=== PATIENT | female | born 1980 | race Caucasian/White ===

== ENCOUNTER 2016-04-28 15:29 | Inpatient (IN) | payer OTHER ==
[~2016-04-28] VITALS: Ht 160 cm; Wt 68.4 kg
[2016-04-28] MEDS ORDERED: MIDAZOLAM INJ 2 MG/2 ML VIAL (J2250) As Ordered ONE ×3 (15:53→16:20)
[2016-04-28] MEDS ORDERED: ISOVUE-370 76% 100ML VIAL (Q9967) As Ordered ONE (15:56)
[2016-04-28 16:08] LABS: ABG BASE EXCESS -0.1 (-2.0-2.0); ABG DEVICE NASAL CANN; ABG HCO3 22.1 MEQ/L (22.0-26.0); ABG PARTIAL PRESSURE CO2 29.5 mmHg (35.0-45.0); ABG PARTIAL PRESSURE O2 166.3 mmHg (75.0-100.0); ABG STANDARD HCO3 24.5 MEQ/L (22.0-26.0); ABG pH (ARTERIAL) 7.492 UNITS (7.350-7.450)
[2016-04-28 16:12] LABS: BASO % 0.3 % (0.0-1.0); EOS # 0.1 K/mm3 (0.0-0.50); LARGE UNSTAINED CELL # 0.2 K/mm3 (0.0-0.4); LYMPH # 2.5 K/mm3 (1.5-4.5); LYMPH % 25.1 % (24.0-44.0); MEAN CORPUSCULAR HEMOGLOBIN 29.7 pg (27.0-33.0); MEAN CORPUSCULAR HGB CONC 35.1 g/dl (32.0-36.5); MEAN CORPUSCULAR VOLUME 84.6 fl (80.0-96.0); MONO # 0.6 K/mm3 (0.0-0.8); MONO % 6.5 % (0.0-5.0); NEUTROPHILS % 65.1 % (36.0-66.0); PLATELET COUNT, AUTOMATED 241 k/mm3 (150-450); WHITE BLOOD COUNT 9.2 K/mm3 (4.0-10.0)
[2016-04-28 16:18] LABS: AMPHETAMINES LEVEL URINE POSITIVE (NEGATIVE); BENZODIAZEPINES URINE NEGATIVE (NEGATIVE); COCAINE METABOLITE URINE NEGATIVE (NEGATIVE); CONTROL LINE INT CTR LINE PRESENT; METHADONE URINE NEGATIVE (NEGATIVE); OPIATES URINE POSITIVE (NEGATIVE); TRICYCLIC ANTIDEPRESS URINE NEGATIVE (NEGATIVE)
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
--- NOTE | 2016-04-28 17:06 | ECGEPIP ---
Stationary ECG Study [facility] - ED Test Date: 2016-04-28 Pat Name: JAVIER OSBORNE Department: Room: - Gender: F [employer]idential Property [employer]: ct : 1980 Requested By: Yvonne Head Order Number: [id number] Reading MD: Neptali Marroquin Measurements Intervals [place] Rate: 78 P: 49 TX: 154 QRS: 68 QRSD: 95 T: 52 QT: 386 QTc: 442 Interpretive Statements SINUS RHYTHM Electronically Signed On 04-28-2016 17:06:21 EST by Neptali Marroquin
[2016-04-28 17:27] LABS: ABG BASE EXCESS 0.3 (-2.0-2.0); ABG DEVICE NASAL CANN; ABG PARTIAL PRESSURE CO2 40.5 mmHg (35.0-45.0); ABG STANDARD HCO3 24.3 MEQ/L (22.0-26.0); ABG TOTAL CO2 26.2 MEQ/L (22.0-29.0); ABG pH (ARTERIAL) 7.408 UNITS (7.350-7.450)
[2016-04-28] MEDS ORDERED: PROPOFOL 1,000 MG/100 ML VIAL As Ordered ONE (17:28)
[2016-04-28 17:39] LABS: ABG BASE EXCESS 0.2 (-2.0-2.0); ABG DEVICE NASAL CANN; ABG PARTIAL PRESSURE CO2 36.6 mmHg (35.0-45.0); ABG PARTIAL PRESSURE O2 184.6 mmHg (75.0-100.0); ABG STANDARD HCO3 24.7 MEQ/L (22.0-26.0); ABG TOTAL CO2 25.1 MEQ/L (22.0-29.0); ABG pH (ARTERIAL) 7.435 UNITS (7.350-7.450)
[2016-04-28 17:42] LABS: INR 0.93
[2016-04-28 17:49] LABS: CONTROL LINE HCG INT CTR LINE PRESENT
[2016-04-28 17:58] LABS: ALBUMIN 3.6 GM/DL (3.2-5.2); ALKALINE PHOSPHATASE 99 U/L (45-117); ALT/SGPT 44 U/L (12-78); ANION GAP 9 MEQ/L (8-16); AST/SGOT 28 U/L (15-37); BILIRUBIN,DIRECT 0.2 MG/DL (0.0-0.2); BILIRUBIN,TOTAL 0.6 MG/DL (0.2-1.0); BLOOD UREA NITROGEN 21 MG/DL (7-18); CARBON DIOXIDE LEVEL 26 MEQ/L (21-32); CHLORIDE LEVEL 100 MEQ/L (98-107); CREATININE FOR GFR 0.79 MG/DL (0.55-1.02); GLOMERULAR FILTRATION RATE > 60.0 (>60); GLUCOSE, FASTING 255 MG/DL (70-105); SODIUM LEVEL 135 MEQ/L (136-145); TOTAL PROTEIN 7.2 GM/DL (6.4-8.2)
[2016-04-28 18:18] LABS: MAGNESIUM LEVEL 2.4 MG/DL (1.8-2.4)
[2016-04-28] MEDS ORDERED: MORPHINE 2 MG/ML 1ML SYRINGE IV PRN (18:30)
[2016-04-28] MEDS ORDERED: MIDAZOLAM INJ 2 MG/2 ML VIAL (J2250) IV PRN (18:30)
[2016-04-28] MEDS ORDERED: DEXTROSE 50% 50 ML SYRINGE IV PRN (18:45)
[2016-04-28] MEDS ORDERED: GLUCAGON FOR INJ 1 MG VIAL (J1610) SC PRN (18:45)
[2016-04-28] MEDS ORDERED: GLUCOSE 4 GM CHEW TABLET PO PRN (18:45)
[2016-04-28 18:51] LABS: PHOSPHORUS LEVEL 2.9 MG/DL (2.5-4.9)
[2016-04-28 19:03] VITALS: O2SAT 100
[2016-04-28 19:46] LABS: ABG BASE EXCESS -3.3 (-2.0-2.0); ABG HCO3 21.1 MEQ/L (22.0-26.0); ABG PARTIAL PRESSURE CO2 36.1 mmHg (35.0-45.0); ABG PARTIAL PRESSURE O2 132.5 mmHg (75.0-100.0); ABG STANDARD HCO3 21.8 MEQ/L (22.0-26.0); ABG TOTAL CO2 22.2 MEQ/L (22.0-29.0); ABG pH (ARTERIAL) 7.384 UNITS (7.350-7.450)
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
--- NOTE | 2016-04-28 21:00 | EDDOCDS ---
Nurse's Notes [facility] Name: Javier Caldwell Age: 35 yrs Sex: Female : 1980 Arrival Date: 04/28/2016 Time: 15:29 Bed 3 Private MD: Diagnosis: Altered mental status, unspecified Presentation: 04/28 15:26 Presenting complaint: EMS states: Pt found approximately [address] off [address] upside down jo3 in vehicle. Unresponsive at scene. Reactive pupils RR10-12. Opens eyes to painful stimuli. OPA inserted by EMS. Pt resisting bag and tube. FSBS 223. IO in left LE. Adult Sepsis Screening: Patient has new or worsening altered mentation (1 point). Patient's respiratory rate is less than 22. Systolic blood pressure is greater than 100. Patient has a qSOFA score of 1- Negative Sepsis Screen. Suicide/Homicide risk assessment-. Suicide/Homicide risk assessment- Unable to assess. 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 Transition of care: patient was not received from another setting of care. 15:26 Acuity: LUIS Level 1 jo3 15:26 Method Of Arrival: Ambulance jo3 Triage Assessment: 15:26 General: Appears in no apparent distress. HIV screening NA for this visit unresponsive. jo3 Neurological: Level of Consciousness is unresponsive. EENT: No deficits noted. Cardiovascular: Capillary refill is brisk Edema is absent. Rhythm is sinus rhythm No ectopy. Respiratory: Airway via oral airway. GI: Abdomen is non- distended. Derm: Skin is pink, warm & dry. 20:45 Pain: Unable to use pain scale. Patient is unresponsive. af2 DRAFTER TOOL DESIGN: 15:26 unk jo3 Historical: - Allergies: Unable to obtain; - Home Meds: 1. Adderall oral oral - PMHx: Unable to obtain; - PSHx: Unable to obtain; - Social history: Smoking status: unknown if patient ever smoked tobacco. unresponsive. - Family history: Not pertinent. - : Unable to assess if pt is on anticoagulants. Unable to Verify Home Med List with the patient / caregiver. - Exposure Risk Screening:: Unable to Assess. Screenin:50 Fall risk: Unable to Assess. Assistance ADL's: unable to assess. Abuse/DV Screen: jo3 Unable to Assess. Nutritional screening: Unable to Assess. Advance Directives: Unable to assess Advance Directive status due to pt condition. 20:42 Screening information is obtained from unknown. Abuse/DV Screen: The patient / af2 caregiver reports he/she is: pt cannot be assessed for living situation at this time. home support is adequate. Assessment: 15:27 General: Pt transferred from stretcher to bed. remains unresponsive. No withdrawal from jo3 painful stimuli. . Cardiovascular: Rhythm is sinus rhythm No ectopy. Respiratory:. Respiratory: RR 12 with OPA. Derm: Skin is pink, warm & dry. 15:49 Reassessment: Pt rolled and removed from back board. C-spine precautions maintained. No jo3 further changes noted. Multiple linear scars to darryl posterior ankles some scaring to hands and DARRYL ACs. CXR done at this time . 16:30 General: Appears in no apparent distress, Behavior is. General: Triple lumen femoral jo3 line placed by dr gray. Additional blood samples sent to lab. Awaiting results. . Neurological: Level of Consciousness is unresponsive. Cardiovascular: Heart tones S1 S2 present Edema is absent. Rhythm is sinus rhythm No ectopy. : Castaneda in place to gravity drainage Urine is clear. Derm: Skin is pink, warm & dry. 17:26 General: Appears in no apparent distress, Pt's eyes open and pt responding to yes/no jo3 questions. Obeys command to squeeze fingers. Asked for pen to write. Asked for boyfriend Lazaro Ivey in [place] at [facility]. This conventional mortgage underwriter called and located Lazaro Ivey and informed him of pt's wish to contact him. Lazaro unable to supply this conventional mortgage underwriter with a telephone number for family and stated that pt has a history of diabetes and seizures for which she is non compliant with medications. Pt informed of telephone call and asked if she wished to have other family notified and she declined by shaking her head "no". . 18:00 General: Appears in no apparent distress, comfortable, to be sleeping. General: jo3 Assisted ventilations. ET tube remains 21 at lip. OG tube 65 at lip. yellow drainage in OG tubes. Pt suctioned for clear oral secretions. No changes in vent settings. See VS. . Neurological: Level of Consciousness is. Cardiovascular: Rhythm is sinus rhythm No ectopy. Respiratory:. 18:48 Reassessment: Pt intermittently awake. Propofol boluses as per Dr order administered jo3 with Arreguin pump. Increases in infusion with each bolus. Pt remains cooperative when awake. Vent settings remain unchanged. Tolerating treatment well. Awaiting admission to ICU. 19:06 General: Appears in no apparent distress, comfortable, Behavior is quiet, Assumed care af2 of pt at this time. Pt eyes opened at this time, Propofol rate increased to 30 mcg/kg/min.. Neurological: Level of Consciousness is unresponsive. Cardiovascular: Rhythm is sinus rhythm No ectopy. Respiratory: Airway via oral intubation. Derm: Skin is pink, warm & dry. 19:45 General: Pt eyes open at this time, pt moves hand in writing motion. Provided pt with af2 paper and pen on clip board. Pt writes, "can we take out tube?" This conventional mortgage underwriter confirmed with pt that she is requesting ET Tube removal, pt nods head yes. Patient Access Manager notified at this time, states pt is not stable enough for extubation. This conventional mortgage underwriter explained to pt. Sedation increased.. 20:29 General: Appears in no apparent distress, Behavior is quiet, pt boyfriend called at af2 this time name- Lazaro Angel [phone]. this is only contact center professional we have for pt.. 20:38 General: Appears in no apparent distress, Behavior is quiet. Cardiovascular: Rhythm is af2 sinus rhythm No ectopy. Respiratory: Airway via oral intubation Breath sounds are clear bilaterally. GI: Oral gastric tube to suction. Derm: Skin is pink, warm & dry. Vital Signs: 15:29 BP 155 / 112; Pulse 95; Resp 12; Pulse Ox 100% ; jo3 15:30 BP 141 / 103 (auto/); jo3 15:34 BP 155 / 112 (auto/); jo3 15:34 Pulse 98 MON; Pulse Ox 88% ; jo3 15:42 BP 243 / 146 (auto/); jo3 15:45 BP 202 / 122 (auto/); jo3 15:50 BP 173 / 112 (auto/); jo3 16:05 BP 156 / 102 (auto/); jo3 16:10 BP 172 / 106 (auto/); Pulse 82; Resp 14; Temp 96.9(R); jo3 16:15 BP 169 / 102 (auto/); jo3 16:17 BP 157 / 106 (auto/); jo3 16:17 Pulse 79 MON; Pulse Ox 100% ; jo3 16:22 BP 152 / 105 (auto/); jo3 16:22 Pulse 82 MON; Pulse Ox 100% ; jo3 16:23 BP 151 / 103 (auto/); jo3 16:23 Pulse 82 MON; Pulse Ox 100% ; jo3 16:24 BP 138 / 80 RA (man/); jo3 16:25 BP 150 / 108 (auto/); jo3 16:25 Pulse 87 MON; Pulse Ox 100% ; jo3 16:28 BP 153 / 100 (auto/); jo3 16:28 Pulse 88 MON; Pulse Ox 100% ; jo3 16:30 BP 145 / 103 (auto/); jo3 16:30 Pulse 94 MON; Pulse Ox 100% ; jo3 16:33 BP 142 / 101 (auto/); jo3 16:33 Pulse 90 MON; Pulse Ox 100% ; jo3 16:35 BP 142 / 104 (auto/); jo3 16:35 Pulse 87 MON; Pulse Ox 100% ; jo3 16:38 BP 147 / 109 (auto/); jo3 16:38 Pulse 84 MON; Pulse Ox 100% ; jo3 16:40 BP 147 / 101 (auto/); jo3 16:40 Pulse 84 MON; Pulse Ox 100% ; jo3 16:43 BP 144 / 105 (auto/); jo3 16:43 Pulse 82 MON; Pulse Ox 100% ; jo3 16:45 BP 149 / 109 (auto/); jo3 16:45 Pulse 81 MON; Pulse Ox 100% ; jo3 16:48 BP 151 / 112 (auto/); jo3 16:48 Pulse 78 MON; Pulse Ox 100% ; jo3 16:50 BP 146 / 106 (auto/); jo3 16:50 Pulse 79 MON; Pulse Ox 100% ; jo3 16:53 BP 155 / 110 (auto/); jo3 16:53 Pulse 81 MON; Pulse Ox 100% ; jo3 16:55 BP 161 / 113 (auto/); jo3 16:55 Pulse 80 MON; Pulse Ox 100% ; jo3 16:58 BP 156 / 113 (auto/); jo3 16:58 Pulse 80 MON; Pulse Ox 100% ; jo3 17:00 BP 143 / 102 (auto/); jo3 17:00 Pulse 81 MON; Pulse Ox 100% ; jo3 17:03 BP 145 / 106 (auto/); jo3 17:03 Pulse 80 MON; Pulse Ox 100% ; jo3 17:05 BP 148 / 100 (auto/); jo3 17:05 Pulse 81 MON; Pulse Ox 100% ; jo3 17:08 BP 153 / 108 (auto/); jo3 17:09 Pulse 78 MON; Pulse Ox 100% ; jo3 17:10 BP 158 / 108 (auto/); jo3 17:10 Pulse 80 MON; Pulse Ox 100% ; jo3 17:13 BP 156 / 104 (auto/); jo3 17:13 Pulse 85 MON; Pulse Ox 100% ; jo3 17:15 BP 144 / 103 (auto/); jo3 17:15 Pulse 85 MON; Pulse Ox 100% ; jo3 17:18 BP 144 / 103 (auto/); jo3 17:18 Pulse 82 MON; Pulse Ox 100% ; jo3 17:20 BP 148 / 108 (auto/); jo3 17:20 Pulse 81 MON; Pulse Ox 100% ; jo3 17:23 BP 145 / 104 (auto/); jo3 17:23 Pulse 81 MON; Pulse Ox 100% ; jo3 17:25 BP 144 / 104 (auto/); jo3 17:25 Pulse 81 MON; Pulse Ox 100% ; jo3 17:28 Weight 72.57 kg (M); ar3 17:28 BP 149 / 100 (auto/); jo3 17:28 Pulse 82 MON; Pulse Ox 100% ; jo3 17:30 BP 154 / 103 (auto/); jo3 17:30 Pulse 83 MON; Pulse Ox 100% ; jo3 17:33 BP 142 / 111 (auto/); jo3 17:33 Pulse 82 MON; Pulse Ox 100% ; jo3 17:35 BP 148 / 98 (auto/); jo3 17:35 Pulse 84 MON; jo3 17:38 BP 119 / 87 (auto/); jo3 17:38 Pulse 83 MON; Pulse Ox 100% ; jo3 17:40 BP 148 / 105 (auto/); jo3 17:40 Pulse 95 MON; Pulse Ox 100% ; jo3 17:43 BP 146 / 108 (auto/); jo3 17:43 Pulse 100 MON; Pulse Ox 100% ; jo3 17:45 Pulse 99 MON; Pulse Ox 100% ; jo3 17:45 BP 146 / 110 (auto/); jo3 17:48 BP 139 / 104 (auto/); jo3 17:48 Pulse 93 MON; Pulse Ox 100% ; jo3 17:50 BP 146 / 106 (auto/); jo3 17:50 Pulse 96 MON; Pulse Ox 100% ; jo3 17:53 BP 140 / 104 (auto/); jo3 17:53 Pulse 95 MON; Pulse Ox 100% ; jo3 17:55 BP 147 / 110 (auto/); jo3 17:55 Pulse 93 MON; Pulse Ox 100% ; jo3 17:58 BP 138 / 108 (auto/); jo3 17:58 Pulse 91 MON; Pulse Ox 100% ; jo3 18:00 BP 148 / 112 (auto/); jo3 18:00 Pulse 89 MON; Pulse Ox 100% ; jo3 18:03 BP 151 / 114 (auto/); jo3 18:03 Pulse 88 MON; Pulse Ox 100% ; jo3 18:05 BP 157 / 114 (auto/); jo3 18:05 Pulse 88 MON; Pulse Ox 100% ; jo3 18:08 BP 158 / 113 (auto/); jo3 18:08 Pulse 89 MON; Pulse Ox 100% ; jo3 19:03 BP 144 / 106 (auto/); af2 19:03 Pulse 93 MON; Resp 16 A; Pulse Ox 100% on 30% FiO2 ETT vent; af2 19:05 BP 151 / 107 (auto/); af2 19:05 Pulse 92 MON; Resp 16 A; Pulse Ox 100% on 30% FiO2 ETT vent; af2 19:08 BP 165 / 109 (auto/); af2 19:08 Pulse 93 MON; Resp 16 A; Pulse Ox 100% on 30% FiO2 ETT vent; af2 19:10 BP 153 / 109 (auto/); af2 19:10 Pulse 94 MON; Resp 16 A; Pulse Ox 100% on 30% FiO2 ETT vent; af2 19:13 BP 149 / 102 (auto/); af2 19:13 Pulse 95 MON; Resp 16 A; Pulse Ox 100% on 30% FiO2 ETT vent; af2 19:15 BP 154 / 101 (auto/); af2 19:15 Pulse 95 MON; Resp 16 A; Pulse Ox 100% on 30% FiO2 ETT vent; af2 19:18 BP 146 / 104 (auto/); af2 19:18 Pulse 94 MON; Resp 16 A; Pulse Ox 100% on 30% FiO2 ETT vent; af2 19:20 BP 151 / 107 (auto/); af2 19:20 Pulse 96 MON; Resp 16 A; Pulse Ox 100% on 30% FiO2 ETT vent; af2 19:23 BP 156 / 99 (auto/); af2 19:23 Pulse 96 MON; Resp 16 S; Pulse Ox 100% on 30% FiO2 ETT vent; af2 19:25 BP 148 / 103 (auto/); af2 19:25 Pulse 97 MON; Pulse Ox 100% ; af2 19:28 BP 141 / 102 (auto/); af2 19:28 Pulse 98 MON; Resp 16 S; Pulse Ox 100% on 30% FiO2 ETT vent; af2 19:30 BP 148 / 106 (auto/); af2 19:30 Pulse 97 MON; Pulse Ox 100% ; af2 19:33 BP 148 / 102 (auto/); af2 19:33 Pulse 98 MON; Resp 16 S; Pulse Ox 100% on 30% FiO2 ETT vent; af2 19:35 BP 148 / 101 (auto/); af2 19:35 Pulse 97 MON; Pulse Ox 100% ; af2 19:40 BP 180 / 114 (auto/); af2 19:40 Pulse 97 MON; Resp 16 A; Pulse Ox 100% on 30% FiO2 ETT vent; af2 19:43 BP 177 / 121 (auto/); af2 19:43 Pulse 98 MON; Pulse Ox 100% ; af2 19:45 BP 171 / 116 (auto/); af2 19:45 Pulse 97 MON; Resp 16 A; Pulse Ox 100% on 30% FiO2 ETT vent; af2 19:48 BP 176 / 119 (auto/); af2 19:48 Pulse 101 MON; Pulse Ox 100% ; af2 19:50 BP 176 / 114 (auto/); af2 19:50 Pulse 102 MON; Resp 16 A; Pulse Ox 100% on 30% FiO2 ETT vent; af2 19:53 BP 145 / 103 (auto/); af2 19:53 Pulse 103 MON; Pulse Ox 100% ; af2 19:55 BP 163 / 114 (auto/); af2 19:55 Pulse 105 MON; Resp 16 A; Pulse Ox 100% on 30% FiO2 ETT vent; af2 19:58 BP 163 / 112 (auto/); af2 19:58 Pulse 103 MON; Resp 16 A; Pulse Ox 100% on 30% FiO2 ETT vent; af2 20:00 BP 159 / 112 (auto/); af2 20:00 Pulse 103 MON; Pulse Ox 100% ; af2 20:03 BP 154 / 106 (auto/); af2 20:03 Pulse 103 MON; Pulse Ox 100% ; af2 20:05 BP 149 / 103 (auto/); af2 20:05 Pulse 103 MON; Resp 16 A; Pulse Ox 100% on 30% FiO2 ETT vent; af2 20:08 BP 150 / 104 (auto/); af2 20:08 Pulse 103 MON; Pulse Ox 99% ; af2 20:10 BP 146 / 100 (auto/); af2 20:10 Pulse 102 MON; Pulse Ox 99% ; af2 20:13 BP 136 / 97 (auto/); af2 20:13 Pulse 103 MON; Pulse Ox 99% ; af2 20:15 BP 137 / 101 (auto/); af2 20:15 Pulse 102 MON; Resp 16 A; Temp 96.9(TE); Pulse Ox 99% on 30% FiO2 ETT vent; af2 20:17 Pulse 102 MON; Pulse Ox 99% ; af2 20:18 BP 138 / 104 (auto/); af2 20:20 BP 141 / 104 (auto/); af2 20:20 Pulse 101 MON; Pulse Ox 99% ; af2 20:23 BP 146 / 96 (auto/); af2 20:23 Pulse 100 MON; Pulse Ox 99% ; af2 20:25 BP 137 / 98 (auto/); af2 20:25 Pulse 100 MON; Pulse Ox 99% ; af2 20:28 Pulse 100 MON; Pulse Ox 99% ; af2 20:28 BP 137 / 96 (auto/); af2 20:30 BP 135 / 90 (auto/); af2 20:30 Pulse 100 MON; Resp 16 A; Pulse Ox 99% on 30% FiO2 ETT vent; af2 20:33 BP 142 / 102 (auto/); af2 20:33 Pulse 100 MON; Resp 16 A; Pulse Ox 99% on 30% FiO2 ETT vent; af2 20:35 BP 142 / 94 (auto/); af2 20:35 Pulse 99 MON; Resp 16 A; Pulse Ox 100% on 30% FiO2 ETT vent; af2 Vitals: 15:26 Log In Time N/A - ambulance arrival. jo3 ED Course: 15:30 Patient visited by Shama Rios PCA. ar3 15:30 Patient moved to Waiting ar3 15:30 Patient moved to 3 ar3 15:31 Inserted saline lock: 20 gauge in right hand. jo3 15:39 Assist provider with intubation with 7.5 Fr. ETT. via oral route. Set up intubation jo3 tray. Intubated by Yvonne Head MD Placement verified by CXR, CO2 detector w/ + color change, auscultating bilateral breath sounds, Patient tolerated well. 15:45 Castaneda cath inserted 18 Fr. Balloon inflated. To gravity drainage. Urine specimen jo3 collected. returned clear yellow urine. 15:45 NGT inserted 18 Fr. Via orogastric route to intermittent suction. Patient tolerated jo3 well. 15:50 Yvonne Head MD is Attending Physician. sd1 15:50 Patient visited by Yvonne Head MD. sd1 15:57 Basic Metabolic Profile Sent. sew 15:57 CBC with Diff Sent. sew 15:57 Cardiac Injury Profile Sent. sew 15:57 HCG,Serum Qualitative Sent. sew 15:57 Liver Profile Sent. sew 15:58 Lipase Sent. sew 15:58 PT/INR Sent. sew 15:58 Troponin Sent. sew 15:58 PTT Sent. sew 15:58 Type & Screen Sent. sew 15:58 Urinalysis Sent. sew 15:58 Type and Cross, Packed Cells Sent. sew 15:58 Urine Toxicology Sent. sew 16:08 -Arterial Blood Gas Sent. kt1 16:21 SALICYLATE LEVEL Sent. ar3 16:21 ETHYL ALCOHOL (ETHANOL) Sent. ar3 16:21 ACETAMINOPHEN LEVEL Sent. ar3 16:30 Assist provider with central line placement of triple lumen in right femoral. Set up jo3 central line tray. Line placed by Yvonne Head MD Placement verified by blood return. 16:33 Triage Initiated jo3 16:36 Patient visited by Ro Polanco PCA. rs6 16:41 CT Head Without Contrast Returned. EDMS 16:41 CT Spine,Cervical W/o Contrast Returned. EDMS 16:45 EKG done. (by ED staff). Reviewed by Yvonne Head MD. ct3 16:46 Patient visited by Caitlin Laboy PCA. ct3 16:50 Unable to instruct regarding the plan of care due to patient condition. jo3 17:15 -Arterial Blood Gas Sent. ar3 17:15 Lactic Acid (Ag tube on ice) Sent. ar3 17:15 Ammonia ([place] Tube on Ice, Not [place]) Sent. ar3 17:19 EKG-ADULT Returned. EDMS 17:28 Patient visited by Shama Rios PCA. ar3 18:29 Patient visited by Gayle Adams,AGNES. jo3 18:30 Jacobo Kramer is Hospitalizing Provider. sd1 18:42 Patient visited by Gayle Adams,AGNES. jo3 19:05 Rachana Palencia RN is Primary Nurse. af2 19:07 ON LICENSE OF [facility] Payment Agreement was scanned into Andel and attached to record. gjb 19:10 Patient visited by Rachana Palencia RN. af2 19:13 Patient has correct armband on for positive identification. Placed in gown. Side rails af2 up X2. 19:20 Patient visited by Rachana Palencia RN. af2 19:32 Patient name changed from Javier\\S\\\\S\\Fink\\S\\ to Javier\\S\\Victoria\\S\\Fink. EDMS 20:38 Discontinued IO discontinued. Not viable. jo3 Administered Medications: 15:31 Drug: naloxone 2 mg [naloxone 1 mg/mL injection syringe (2 mL)] Route: IVP; Site: right jo3 hand; 15:38 Drug: Etomidate 20 mg [etomidate 2 mg/mL intravenous solution (10 mL)] Route: IVP; jo3 Site: right hand; 15:38 Drug: Succinylcholine 120 mg Route: IV; Rate: bolus; Site: right hand; jo3 16:22 Drug: Midazolam 2 mg [midazolam 1 mg/mL injection solution (2 mL)] Route: IVP; Site: jo3 right hand; 17:38 Drug: Propofol (PF) 40 mg [propofol (PF) 1,000 mg/100 mL (10 mg/mL) intravenous jo3 emulsion (4 mL)] Route: IVP; Site: right hand; 17:38 Drug: Propofol (PF) 725.7 mcg/min Route: IVPB; Site: right hand; jo3 17:48 Follow up: Increased to 15mcg/kg/min jo3 17:54 Follow up: Increased to 20mcg/kg/min jo3 18:53 Follow up: Increased to 25mcg/kg/min jo3 19:10 Follow up: Rate change 30 mcg/kg/min af2 19:17 Follow up: Rate change 40 mcg/kg/min af2 19:36 Follow up: Rate change 50 mcg/kg/min af2 19:41 Follow up: Rate change 60 mcg/kg/min af2 19:46 Follow up: Rate change 70 mcg/kg/min af2 19:50 Follow up: Rate change 80 mcg/kg/min af2 19:58 Follow up: Rate change 90 mcg/kg/min af2 20:04 Follow up: Rate change 100 mcg/kg/min af2 20:14 Follow up: Rate change 110 mcg/kg/min af2 17:48 Drug: Propofol (PF) 40 mg [propofol (PF) 1,000 mg/100 mL (10 mg/mL) intravenous jo3 emulsion (4 mL)] Route: IVP; Site: right hand; 17:54 Drug: Propofol (PF) 20 mg [propofol (PF) 1,000 mg/100 mL (10 mg/mL) intravenous jo3 emulsion (2 mL)] Route: IVP; Site: right hand; 18:48 Drug: Propofol (PF) 40 mg [propofol (PF) 1,000 mg/100 mL (10 mg/mL) intravenous jo3 emulsion (4 mL)] Route: IVP; Site: right hand; Intake: RT: 16:04 Ventilation: Ventilator Settings Assist Control, FiO2 40% Resp Rate: 14, Tidal Volume kt1 420ml PEEP: 5. 19:33 Ventilation: Ventilator Settings FiO2 30% Resp Rate: 16, Tidal Volume 350ml PEEP: 5. rs5 19:46 ABG's drawn from right radial artery pressure held for 5 minutes no bleeding noted rs5 pressure bandage applied specimen sent pt. tolerated well. Ventilator: 15:45 Fi02: 40%; Rate: 14min; T.V.: 420ml; Peep: 5cm; ET tube: 7.5 mm (Oral); jo3 15:45 Fi02: 40%; Rate: 14min; T.V.: 420ml; Peep: 5cm; ET tube: 7.5 mm (Oral); jo3 Order Results: Lab Order: Basic Metabolic Profile; [facility] 04/28/16 17:00 Test: GLUCOSE, FASTING; Value: 255; Range: 70-105; Abnormal: Above high normal; Units: MG/DL; Status: F Test: BLOOD UREA NITROGEN; Value: 21; Range: 7-18; Abnormal: Above high normal; Units: MG/DL; Status: F Test: CREATININE FOR GFR; Value: 0.79; Range: 0.55-1.02; Units: MG/DL; Status: F Test: SODIUM LEVEL; Range: 136-145; Units: MEQ/L; Status: I Test: POTASSIUM SERUM; Range: 3.5-5.1; Units: MEQ/L; Status: I Test: CHLORIDE LEVEL; Range: 98-107; Units: MEQ/L; Status: I Test: CARBON DIOXIDE LEVEL; Range: 21-32; Units: MEQ/L; Status: I Test: ANION GAP; Range: 8-16; Units: MEQ/L; Status: I Test: CALCIUM LEVEL; Range: 8.5-10.1; Units: MG/DL; Status: I Test: GLOMERULAR FILTRATION RATE; Value: > 60.0; Range: >60; Status: F Test: SODIUM LEVEL; Value: 135; Range: 136-145; Abnormal: Below low normal; Units: MEQ/L; Status: F Test: POTASSIUM SERUM; Value: 4.0; Range: 3.5-5.1; Units: MEQ/L; Status: F Test: CHLORIDE LEVEL; Value: 100; Range: 98-107; Units: MEQ/L; Status: F Test: CARBON DIOXIDE LEVEL; Value: 26; Range: 21-32; Units: MEQ/L; Status: F Test: ANION GAP; Value: 9; Range: 8-16; Units: MEQ/L; Status: F Test: CALCIUM LEVEL; Value: 9.0; Range: 8.5-10.1; Units: MG/DL; Status: F Test Note: ; Units are mL/min/1.73 m2 Chronic Kidney Disease Staging per NKF: Stage I & II GFR >=60 Normal to Mildly Decreased Stage III GFR 30-59 Moderately Decreased Stage IV GFR 15-29 Severely Decreased Stage V GFR <15 Very Little GFR Left ESRD GFR <15 on ROSIN [facility]ER Lab Order: CBC with Diff; [facility] 04/28/16 15:47 Test: WHITE BLOOD COUNT; Value: 9.2; Range: 4.0-10.0; Units: K/mm3; Status: F Test: RED BLOOD COUNT; Value: 5.21; Range: 4.00-5.40; Units: M/mm3; Status: F Test: HEMOGLOBIN; Value: 15.5; Range: 12.0-16.0; Units: g/dl; Status: F Test: HEMATOCRIT; Value: 44.1; Range: 36.0-47.0; Units: %; Status: F Test: MEAN CORPUSCULAR VOLUME; Value: 84.6; Range: 80.0-96.0; Units: fl; Status: F Test: MEAN CORPUSCULAR HEMOGLOBIN; Value: 29.7; Range: 27.0-33.0; Units: pg; Status: F Test: MEAN CORPUSCULAR HGB CONC; Value: 35.1; Range: 32.0-36.5; Units: g/dl; Status: F Test: RED CELL DISTRIBUTION WIDTH; Value: 13.0; Range: 11.5-14.5; Units: %; Status: F Test: PLATELET COUNT, AUTOMATED; Value: 241; Range: 150-450; Units: k/mm3; Status: F Test: NEUTROPHILS %; Value: 65.1; Range: 36.0-66.0; Units: %; Status: F Test: LYMPH %; Value: 25.1; Range: 24.0-44.0; Units: %; Status: F Test: MONO %; Value: 6.5; Range: 0.0-5.0; Abnormal: Above high normal; Units: %; Status: F Test: EOS %; Value: 1.0; Range: 0.0-3.0; Units: %; Status: F Test: BASO %; Value: 0.3; Range: 0.0-1.0; Units: %; Status: F Test: LARGE UNSTAINED CELL %; Value: 2.0; Range: 0.0-4.0; Units: %; Status: F Test: NEUTROPHILS #; Value: 6.0; Range: 1.8-7.7; Units: K/mm3; Status: F Test: LYMPH #; Value: 2.5; Range: 1.5-4.5; Units: K/mm3; Status: F Test: MONO #; Value: 0.6; Range: 0.0-0.8; Units: K/mm3; Status: F Test: EOS #; Value: 0.1; Range: 0.0-0.50; Units: K/mm3; Status: F Test: BASO #; Value: 0.0; Range: 0.0-0.2; Units: K/mm3; Status: F Test: LARGE UNSTAINED CELL #; Value: 0.2; Range: 0.0-0.4; Units: K/mm3; Status: F Lab Order: Cardiac Injury Profile; 04/28/16 17:00 Test: CPK CREATINE PHOSPHOKINASE; Value: 129; Range: 26-192; Units: U/L; Status: F Test: CK-MB VALUE MASS; Value: 1.2; Range: 0.0-3.6; Units: NG/ML; Status: F Test: MB/CK RELATIVE INDEX; Value: 0.93; Range: < OR =4; Status: F Test Note: ; DIAGNOSIS CRITERIA MMB ng/ml Relative Index (RI) NON-AMI < or = 5 N/A AG ZONE > 5 < or = 4 AMI > 5 > 4 Lab Order: HCG,Serum Qualitative; 04/28/16 17:00 Test: HCG, SERUM QUALITATIVE; Value: NEGATIVE; Range: NEGATIVE; Status: F Lab Order: Lipase; 04/28/16 17:00 Test: LIPASE; Value: 132; Range: 73-393; Units: U/L; Status: F Lab Order: Liver Profile; 04/28/16 17:00 Test: AST/SGOT; Value: 28; Range: 15-37; Units: U/L; Status: F Test: ALT/SGPT; Value: 44; Range: 12-78; Units: U/L; Status: F Test: ALKALINE PHOSPHATASE; Value: 99; Range: 45-117; Units: U/L; Status: F Test: BILIRUBIN,TOTAL; Value: 0.6; Range: 0.2-1.0; Units: MG/DL; Status: F Test: BILIRUBIN,DIRECT; Value: 0.2; Range: 0.0-0.2; Units: MG/DL; Status: F Test: TOTAL PROTEIN; Value: 7.2; Range: 6.4-8.2; Units: GM/DL; Status: F Test: ALBUMIN; Value: 3.6; Range: 3.2-5.2; Units: GM/DL; Status: F Test: ALBUMIN/GLOBULIN RATIO; Value: 1.00; Range: 1.00-1.93; Status: F Lab Order: PT/INR; [facility] 04/28/16 17:00 Test: PROTHROMBIN TIME; Value: 12.6; Range: 12.3-14.5; Units: SECONDS; Status: F Test: INR; Value: 0.93; Status: F Test Note: ; THERAPUTIC HUMAN INR VALUES INDICATIONS NORMAL RANGES PROPHYLAXIS/TREATMENT OF: VENOUS THROMBOSIS 2.0-3.0 PULMONARY EMBOLISM 2.0-3.0 PREVENTION OF SYSTEMIC EMBOLISM FROM: TISSUE HEART VALVES 2.0-3.0 ACUTE MYOCARDIAL INFARCTION 2.0-3.0 VALVULAR HEART DISEASE 2.0-3.0 ATRIAL FIBRILLATION 2.0-3.0 MECHANICAL VALVES(HIGH RISK) 2.5-3.5 RECURRENT MYOCARDIAL INFARCTION 2.5-3.5 Lab Order: PTT; [facility]04/28/16 17:00 Test: PARTIAL THROMBOPLASTIN TIME; Value: 24.1; Range: 26.6-37.1; Abnormal: Below low normal; Units: SECONDS; Status: F Lab Order: Troponin; [facility]04/28/16 17:00 Test: TROPONIN I; Value: < 0.02; Range: < 0.10; Units: NG/ML; Status: F Test Note: ; Troponin I Reference Interval for [employer] LOCI: 99th Percentile= 0.00-0.045 ng/ml Risk Stratification: <= 0.10 ng/ml Decreased Risk for Adverse Clinical Events. 0.10-1.50 ng/ml Increased Risk for Adverse Clinical Events. Evaluation of additional criterion and/or repeat testing in 2-6 hours is suggested to rule out myocardial damage. >= 1.50 ng/ml Indicative of Myocardial Injury. Lab Order: Type & Screen; SPEC'M 04/28/16 17:00 Test: BLOOD TYPE; Value: O NEG; Status: F Test: AB SCREEN (INDIRECT DAYAMI)GEL; Value: POSITIVE; Status: F Lab Order: Urinalysis; SPEC'M 04/28/16 15:47 Test: APPEARANCE, URINE; Value: CLEAR; Range: CLEAR; Status: F Test: COLOR, URINE; Value: YELLOW; Range: YELLOW; Status: F Test: PH,URINE; Value: 5.0; Range: 5.0-9.0; Units: UNITS; Status: F Test: SPECIFIC GRAVITY URINE AUTO; Value: 1.037; Range: 1.002-1.035; Status: F Test: PROTEIN, URINE AUTO; Value: NEGATIVE; Range: NEGATIVE; Units: mg/dL; Status: F Test: GLUCOSE, URINE (UA) AUTO; Value: 3+; Range: NEGATIVE; Abnormal: Above high normal; Units: mg/dL; Status: F Test: KETONE, URINE AUTO; Value: 1+; Range: NEGATIVE; Abnormal: Above high normal; Units: mg/dL; Status: F Test: UROBILINOGEN, URINE AUTO; Value: 0.2; Range: 0.0-2.0; Units: mg/dL; Status: F Test: BILIRUBIN, URINE AUTO; Value: NEGATIVE; Range: NEGATIVE; Status: F Test: NITRITE, URINE AUTO; Value: NEGATIVE; Range: NEGATIVE; Status: F Test: LEUKOCYTE ESTERASE, URINE AUTO; Value: NEGATIVE; Range: NEGATIVE; Status: F Test: BLOOD, URINE BLOOD; Value: NEGATIVE; Range: NEGATIVE; Status: F Test: WBC, URINE AUTO; Value: 5; Range: 0-3; Abnormal: Above high normal; Units: /HPF; Status: F Test: RBC, URINE AUTO; Value: 0; Range: 0-3; Units: /HPF; Status: F Test: BACTERIA, URINE AUTO; Value: NEGATIVE; Range: NEGATIVE; Status: F Test: SQUAMOUS EPITHELIAL CELL UR AU; Value: 0; Range: 0-6; Units: /HPF; Status: F Test: MUCUS, URINE; Value: SMALL; Range: NEGATIVE; Status: F Test: HYALINE CAST, URINE AUTO; Value: 0; Range: 0-1; Units: /LPF; Status: F Lab Order: Urine Toxicology; [facility] 04/28/16 15:47 Test: AMPHETAMINES LEVEL URINE; Value: POSITIVE; Range: NEGATIVE; Abnormal: Above high normal; Status: F Test: BARBITURATES URINE; Value: NEGATIVE; Range: NEGATIVE; Status: F Test: BENZODIAZEPINES URINE; Value: NEGATIVE; Range: NEGATIVE; Status: F Test: CANNABINOIDS URINE; Value: NEGATIVE; Range: NEGATIVE; Status: F Test: COCAINE METABOLITE URINE; Value: NEGATIVE; Range: NEGATIVE; Status: F Test: METHADONE URINE; Value: NEGATIVE; Range: NEGATIVE; Status: F Test: OPIATES URINE; Value: POSITIVE; Range: NEGATIVE; Abnormal: Above high normal; Status: F Test: TRICYCLIC ANTIDEPRESS URINE; Value: NEGATIVE; Range: NEGATIVE; Status: F Test Note: ; ALL PRESUMPTIVE POSITIVE FINDINGS ARE UNCONFIRMED NORMAL VALUES THRESHOLD IN NG/ML AMPHETAMINES 1000 METHAMPHETAMINES 1000 BARBITURATES 300 BENZODIAZEPINES 300 CANNABINOIDS (THC) 50 COCAINE METABOLITE 300 METHADONE 300 OPIATES 300 PHENCYCLIDINE 25 TRICYCLIC ANTIDEPRESSANTS 1000 RESULTS ARE FOR MEDICAL PURPOSES ONLY. ALL URINE SPECIMENS WILL BE SAVED FOR 3 DAYS. IF CONFIRMATION OF A PRESUMPTIVE POSTIVE SCREEN RESULT IS DESIRED, CALL CHEMISTRY ([phone]) AND REQUEST URINE TO BE SENT TO REFERENCE LAB. FOR A LIST OF CLOSELY RELATED COMPOUNDS PLEASE CALL THE LAB. Lab Order: ACETAMINOPHEN LEVEL; [facility] 04/28/16 17:00 Test: ACETAMINOPHEN LEVEL; Value: < 2.0; Range: 10.0-30.0; Abnormal: Below low normal; Units: UG/ML; Status: F Lab Order: ETHYL ALCOHOL (ETHANOL); SPEC'M 04/28/16 17:00 Test: ETHYL ALCOHOL (ETHANOL); Value: < 0.003; Range: 0.000-0.010; Units: %; Status: F Lab Order: SALICYLATE LEVEL; [facility] 04/28/16 17:00 Test: SALICYLATE LEVEL; Value: < 1.7; Range: 5.0-30.0; Abnormal: Below low normal; Units: MG/DL; Status: F Lab Order: -Arterial Blood Gas; [facility] 04/28/16 15:46 Test: ABG pH (ARTERIAL); Value: 7.492; Range: 7.350-7.450; Abnormal: Above high normal; Units: UNITS; Status: F Test: ABG PARTIAL PRESSURE CO2; Value: 29.5; Range: 35.0-45.0; Abnormal: Below low normal; Units: mmHg; Status: F Test: ABG PARTIAL PRESSURE O2; Value: 166.3; Range: 75.0-100.0; Abnormal: Above high normal; Units: mmHg; Status: F Test: ABG TOTAL CO2; Value: 23.0; Range: 22.0-29.0; Units: MEQ/L; Status: F Test: ABG HCO3; Value: 22.1; Range: 22.0-26.0; Units: MEQ/L; Status: F Test: ABG BASE EXCESS; Value: -0.1; Range: -2.0-2.0; Status: F Test: ABG STANDARD HCO3; Value: 24.5; Range: 22.0-26.0; Units: MEQ/L; Status: F Test: ABG O2 SATURATION; Value: 99.3; Range: 95.0-99.0; Abnormal: Above high normal; Units: %; Status: F Test: ABG DEVICE; Value: NASAL JUNIOR; Status: F Lab Order: Ammonia ([place] Tube on Ice, Not [place]); [facility] 04/28/16 17:00 Test: AMMONIA; Value: 18; Range: <32; Units: uMOL/L; Status: F Lab Order: Lactic Acid (Ga tube on ice); [facility] 04/28/16 17:00 Test: LACTIC ACID SEPSIS PROTOCOL; Value: 1.4; Range: 0.4-2.0; Units: MMOL/L; Status: F Lab Order: -Arterial Blood Gas; [facility] 04/28/16 16:33 Test: ABG pH (ARTERIAL); Value: 7.408; Range: 7.350-7.450; Units: UNITS; Status: F Test: ABG PARTIAL PRESSURE CO2; Value: 40.5; Range: 35.0-45.0; Units: mmHg; Status: F Test: ABG PARTIAL PRESSURE O2; Value: 41.0; Range: 75.0-100.0; Abnormal: Critical Low; Units: mmHg; Status: F Test: ABG TOTAL CO2; Value: 26.2; Range: 22.0-29.0; Units: MEQ/L; Status: F Test: ABG HCO3; Value: 25.0; Range: 22.0-26.0; Units: MEQ/L; Status: F Test: ABG BASE EXCESS; Value: 0.3; Range: -2.0-2.0; Status: F Test: ABG STANDARD HCO3; Value: 24.3; Range: 22.0-26.0; Units: MEQ/L; Status: F Test: ABG O2 SATURATION; Value: 78.1; Range: 95.0-99.0; Abnormal: Below low normal; Units: %; Status: F Test: ABG DEVICE; Value: NASAL JUNIOR; Status: F Lab Order: -Arterial Blood Gas; SPEC'M 04/28/16 17:34 Test: ABG pH (ARTERIAL); Value: 7.435; Range: 7.350-7.450; Units: UNITS; Status: F Test: ABG PARTIAL PRESSURE CO2; Value: 36.6; Range: 35.0-45.0; Units: mmHg; Status: F Test: ABG PARTIAL PRESSURE O2; Value: 184.6; Range: 75.0-100.0; Abnormal: Above high normal; Units: mmHg; Status: F Test: ABG TOTAL CO2; Value: 25.1; Range: 22.0-29.0; Units: MEQ/L; Status: F Test: ABG HCO3; Value: 24.0; Range: 22.0-26.0; Units: MEQ/L; Status: F Test: ABG BASE EXCESS; Value: 0.2; Range: -2.0-2.0; Status: F Test: ABG STANDARD HCO3; Value: 24.7; Range: 22.0-26.0; Units: MEQ/L; Status: F Test: ABG O2 SATURATION; Value: 99.3; Range: 95.0-99.0; Abnormal: Above high normal; Units: %; Status: F Test: ABG DEVICE; Value: NASAL JUNIOR; Status: F Lab Order: Osmolality, Serum; SPEC'M 04/28/16 16:33 Test: OSMOLALITY SERUM; Value: 304; Range: 275-295; Abnormal: Above high normal; Units: MOSM/KG; Status: F Lab Order: MAGNESIUM LEVEL; [facility]04/[facility] 17:00 Test: MAGNESIUM LEVEL; Value: 2.4; Range: 1.8-2.4; Units: MG/DL; Status: F Lab Order: ARTERIAL BLOOD GAS; [facility]04/28/16 19:27 Test: ABG pH (ARTERIAL); Value: 7.384; Range: 7.350-7.450; Units: UNITS; Status: F Test: ABG PARTIAL PRESSURE CO2; Value: 36.1; Range: 35.0-45.0; Units: mmHg; Status: F Test: ABG PARTIAL PRESSURE O2; Value: 132.5; Range: 75.0-100.0; Abnormal: Above high normal; Units: mmHg; Status: F Test: ABG TOTAL CO2; Value: 22.2; Range: 22.0-29.0; Units: MEQ/L; Status: F Test: ABG HCO3; Value: 21.1; Range: 22.0-26.0; Abnormal: Below low normal; Units: MEQ/L; Status: F Test: ABG BASE EXCESS; Value: -3.3; Range: -2.0-2.0; Abnormal: Below low normal; Status: F Test: ABG STANDARD HCO3; Value: 21.8; Range: 22.0-26.0; Abnormal: Below low normal; Units: MEQ/L; Status: F Test: ABG O2 SATURATION; Value: 98.8; Range: 95.0-99.0; Units: %; Status: F Lab Order: PHOSPHOROUS LEVEL; [facility] 04/28/16 17:00 Test: PHOSPHORUS LEVEL; Value: 2.9; Range: 2.5-4.9; Units: MG/DL; Status: F Radiology Order: CT Head Without Contrast Test: CT Head Without Contrast REASON FOR EXAMINATION: Trauma; Head CT without contrast:; ; History: Trauma.; ; Comparison study: No comparison.; ; CT findings: Bone window settings demonstrate an intact bony calvarium. There; is no evidence of skull fracture or incidental bony calvarial lesion. There is a; small air-fluid level in the left maxillary sinus. The other visualized; paranasal sinuses appear clear. No intraorbital abnormality is seen. On soft; tissue window setting images; the lateral, third, and fourth ventricles are; normal in size and position. Ag-white differentiation pattern is normal above; and below the tentorium. There are is no evidence of intracranial hemorrhage.; No mass, edema, infarction, or midline shift is seen. No extra-axial fluid; collection is appreciated.; ; Impression:; ; Small air-fluid level in the left maxillary sinus, otherwise negative noncontrast; head CT.; ; ; Signed by; Calvin Beltrán MD 04/28/2016 04:18 P; Radiology Order: CT Spine,Cervical W/o Contrast Test: CT Spine,Cervical W/o Contrast REASON FOR EXAMINATION: Trauma; CT study of the cervical spine without contrast:; ; History: Trauma.; ; Technique: Helical scanning is acquired and overlapping 2 mm high resolution; axial images were generated and reviewed at bone and soft tissue window settings.; Coronal and sagittal multiplanar re-formations images are generated.; ; CT findings: There is no evidence of cervical spine element fracture. No skull; base fracture is seen. Cervical vertebral body heights are preserved. Alignment; is normal. There is discogenic spurring at C6-7 and C7-T1. Orotracheal and oral; esophageal tubes are seen. Facet joints are normally aligned bilaterally at each; cervical level on multiplanar re-formations images. There is no evidence of; intraspinal or paraspinal hematoma. No extra vertebral abnormality is seen.; ; Impression:; ; Orotracheal and oral esophageal tubes. Mild degenerative disc changes.; Otherwise negative CT study of the cervical spine without contrast. 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 sd1 20:41 Discharge Assessment: Patient awake, alert and oriented x 3. No cognitive and/or af2 functional deficits noted. Patient verbalized understanding of disposition instructions. patient administered narcotics - no. The following High Risk Discharge criteria are identified: None. Admitted to ICU accompanied by nurse, accompanied by tech, via stretcher, with oxygen, on monitor, with chart. Condition: stable. CT Study completed. Property :Personal belongings accompany Pt. 21:00 Patient left the ED. af2 Signatures: Dispatcher [employer] EDMS Yvonne Head MD MD sd1 Didi David kt1 Gayle Adams RN RN jo3 Shama Rios, TECHNICAL APPLICATIONS SPECIALIST TECHNICAL APPLICATIONS SPECIALIST ar3 Caitlin Laboy, TECHNICAL APPLICATIONS SPECIALIST TECHNICAL APPLICATIONS SPECIALIST ct3 Ibrahima Melvin,RT RT rs5 Yvonne Dangelo Rebecca, TECHNICAL APPLICATIONS SPECIALIST TECHNICAL APPLICATIONS SPECIALIST rs6 Rachana Palencia RN RN af2 Rose Prasad Corrections: (The following items were deleted from the chart) 16:02 15:58 SALICYLATE LEVEL+LAB sent. [facility] 16:02 15:58 ACETAMINOPHEN LEVEL+LAB sent. [facility] 16:02 15:58 ETHYL ALCOHOL (ETHANOL)+LAB sent. [facility] 17:12 15:29 BP 155 / 112; Pulse 95bpm; Resp 100bpm; Pulse Ox 12%; jo3 jo3 17:29 16:00 Reassessment: jo3 jo3 18:05 17:26 Reassessment: jo3 jo3 18:05 17:26 General: Appears jo3 jo3 19:50 17:26 General: Appears in no apparent distress, Pt's eyes open and pt responding to jo3 yes/no questions. Obeys command to squeeze fingers. Asked for pen to write. Asked for boyfriend Lazaro Ivey in [place] at [facility]. This conventional mortgage underwriter called and located Lazaro Sousagabriel and informed him of pt's wish to contact him. Lazaro unable to supply this conventional mortgage underwriter with a telephone number for family and stated that pt has a history of diabetes and seizures for which she is non compliant with medications. . jo3 MTDD
--- NOTE | 2016-04-28 21:00 | EDDOCDS ---
Physician Documentation [facility] Name: Babs Caldwell Age: 35 yrs Sex: Female : 1980 Arrival Date: 04/28/2016 Time: 15:29 Bed 3 Private MD: Disposition: 04/28/16 18:30 Hospitalization ordered by Jacobo Kramer for Inpatient Admission. Preliminary diagnosis is Altered mental status, unspecified. - Bed requested for M ICU. - Status is Inpatient Admission. af2 - Condition is Stable. - Problem is new. - Symptoms have improved. Historical: - Allergies: Unable to obtain; - Home Meds: 1. Adderall oral oral - PMHx: Unable to obtain; - PSHx: Unable to obtain; - Social history: Smoking status: unknown if patient ever smoked tobacco. unresponsive. - Family history: Not pertinent. - : Unable to assess if pt is on anticoagulants. Unable to Verify Home Med List with the patient / caregiver. - Exposure Risk Screening:: Unable to Assess. 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 jo3 Vital Signs: 15:29 BP 155 / 112; Pulse 95; Resp 12; Pulse Ox 100% ; jo3 15:30 BP 141 / 103 (auto/); jo3 15:34 BP 155 / 112 (auto/); jo3 15:34 Pulse 98 MON; Pulse Ox 88% ; jo3 15:42 BP 243 / 146 (auto/); jo3 15:45 BP 202 / 122 (auto/); jo3 15:50 BP 173 / 112 (auto/); jo3 16:05 BP 156 / 102 (auto/); jo3 16:10 BP 172 / 106 (auto/); Pulse 82; Resp 14; Temp 96.9(R); jo3 16:15 BP 169 / 102 (auto/); jo3 16:17 BP 157 / 106 (auto/); jo3 16:17 Pulse 79 MON; Pulse Ox 100% ; jo3 16:22 BP 152 / 105 (auto/); jo3 16:22 Pulse 82 MON; Pulse Ox 100% ; jo3 16:23 BP 151 / 103 (auto/); jo3 16:23 Pulse 82 MON; Pulse Ox 100% ; jo3 16:24 BP 138 / 80 RA (man/); jo3 16:25 BP 150 / 108 (auto/); jo3 16:25 Pulse 87 MON; Pulse Ox 100% ; jo3 16:28 BP 153 / 100 (auto/); jo3 16:28 Pulse 88 MON; Pulse Ox 100% ; jo3 16:30 BP 145 / 103 (auto/); jo3 16:30 Pulse 94 MON; Pulse Ox 100% ; jo3 16:33 BP 142 / 101 (auto/); jo3 16:33 Pulse 90 MON; Pulse Ox 100% ; jo3 16:35 BP 142 / 104 (auto/); jo3 16:35 Pulse 87 MON; Pulse Ox 100% ; jo3 16:38 BP 147 / 109 (auto/); jo3 16:38 Pulse 84 MON; Pulse Ox 100% ; jo3 16:40 BP 147 / 101 (auto/); jo3 16:40 Pulse 84 MON; Pulse Ox 100% ; jo3 16:43 BP 144 / 105 (auto/); jo3 16:43 Pulse 82 MON; Pulse Ox 100% ; jo3 16:45 BP 149 / 109 (auto/); jo3 16:45 Pulse 81 MON; Pulse Ox 100% ; jo3 16:48 BP 151 / 112 (auto/); jo3 16:48 Pulse 78 MON; Pulse Ox 100% ; jo3 16:50 BP 146 / 106 (auto/); jo3 16:50 Pulse 79 MON; Pulse Ox 100% ; jo3 16:53 BP 155 / 110 (auto/); jo3 16:53 Pulse 81 MON; Pulse Ox 100% ; jo3 16:55 BP 161 / 113 (auto/); jo3 16:55 Pulse 80 MON; Pulse Ox 100% ; jo3 16:58 BP 156 / 113 (auto/); jo3 16:58 Pulse 80 MON; Pulse Ox 100% ; jo3 17:00 BP 143 / 102 (auto/); jo3 17:00 Pulse 81 MON; Pulse Ox 100% ; jo3 17:03 BP 145 / 106 (auto/); jo3 17:03 Pulse 80 MON; Pulse Ox 100% ; jo3 17:05 BP 148 / 100 (auto/); jo3 17:05 Pulse 81 MON; Pulse Ox 100% ; jo3 17:08 BP 153 / 108 (auto/); jo3 17:09 Pulse 78 MON; Pulse Ox 100% ; jo3 17:10 BP 158 / 108 (auto/); jo3 17:10 Pulse 80 MON; Pulse Ox 100% ; jo3 17:13 BP 156 / 104 (auto/); jo3 17:13 Pulse 85 MON; Pulse Ox 100% ; jo3 17:15 BP 144 / 103 (auto/); jo3 17:15 Pulse 85 MON; Pulse Ox 100% ; jo3 17:18 BP 144 / 103 (auto/); jo3 17:18 Pulse 82 MON; Pulse Ox 100% ; jo3 17:20 BP 148 / 108 (auto/); jo3 17:20 Pulse 81 MON; Pulse Ox 100% ; jo3 17:23 BP 145 / 104 (auto/); jo3 17:23 Pulse 81 MON; Pulse Ox 100% ; jo3 17:25 BP 144 / 104 (auto/); jo3 17:25 Pulse 81 MON; Pulse Ox 100% ; jo3 17:28 Weight 72.57 kg / 159.99 lbs (M); ar3 17:28 BP 149 / 100 (auto/); jo3 17:28 Pulse 82 MON; Pulse Ox 100% ; jo3 17:30 BP 154 / 103 (auto/); jo3 17:30 Pulse 83 MON; Pulse Ox 100% ; jo3 17:33 BP 142 / 111 (auto/); jo3 17:33 Pulse 82 MON; Pulse Ox 100% ; jo3 17:35 BP 148 / 98 (auto/); jo3 17:35 Pulse 84 MON; jo3 17:38 BP 119 / 87 (auto/); jo3 17:38 Pulse 83 MON; Pulse Ox 100% ; jo3 17:40 BP 148 / 105 (auto/); jo3 17:40 Pulse 95 MON; Pulse Ox 100% ; jo3 17:43 BP 146 / 108 (auto/); jo3 17:43 Pulse 100 MON; Pulse Ox 100% ; jo3 17:45 Pulse 99 MON; Pulse Ox 100% ; jo3 17:45 BP 146 / 110 (auto/); jo3 17:48 BP 139 / 104 (auto/); jo3 17:48 Pulse 93 MON; Pulse Ox 100% ; jo3 17:50 BP 146 / 106 (auto/); jo3 17:50 Pulse 96 MON; Pulse Ox 100% ; jo3 17:53 BP 140 / 104 (auto/); jo3 17:53 Pulse 95 MON; Pulse Ox 100% ; jo3 17:55 BP 147 / 110 (auto/); jo3 17:55 Pulse 93 MON; Pulse Ox 100% ; jo3 17:58 BP 138 / 108 (auto/); jo3 17:58 Pulse 91 MON; Pulse Ox 100% ; jo3 18:00 BP 148 / 112 (auto/); jo3 18:00 Pulse 89 MON; Pulse Ox 100% ; jo3 18:03 BP 151 / 114 (auto/); jo3 18:03 Pulse 88 MON; Pulse Ox 100% ; jo3 18:05 BP 157 / 114 (auto/); jo3 18:05 Pulse 88 MON; Pulse Ox 100% ; jo3 18:08 BP 158 / 113 (auto/); jo3 18:08 Pulse 89 MON; Pulse Ox 100% ; jo3 19:03 BP 144 / 106 (auto/); af2 19:03 Pulse 93 MON; Resp 16 A; Pulse Ox 100% on 30% FiO2 ETT vent; af2 19:05 BP 151 / 107 (auto/); af2 19:05 Pulse 92 MON; Resp 16 A; Pulse Ox 100% on 30% FiO2 ETT vent; af2 19:08 BP 165 / 109 (auto/); af2 19:08 Pulse 93 MON; Resp 16 A; Pulse Ox 100% on 30% FiO2 ETT vent; af2 19:10 BP 153 / 109 (auto/); af2 19:10 Pulse 94 MON; Resp 16 A; Pulse Ox 100% on 30% FiO2 ETT vent; af2 19:13 BP 149 / 102 (auto/); af2 19:13 Pulse 95 MON; Resp 16 A; Pulse Ox 100% on 30% FiO2 ETT vent; af2 19:15 BP 154 / 101 (auto/); af2 19:15 Pulse 95 MON; Resp 16 A; Pulse Ox 100% on 30% FiO2 ETT vent; af2 19:18 BP 146 / 104 (auto/); af2 19:18 Pulse 94 MON; Resp 16 A; Pulse Ox 100% on 30% FiO2 ETT vent; af2 19:20 BP 151 / 107 (auto/); af2 19:20 Pulse 96 MON; Resp 16 A; Pulse Ox 100% on 30% FiO2 ETT vent; af2 19:23 BP 156 / 99 (auto/); af2 19:23 Pulse 96 MON; Resp 16 S; Pulse Ox 100% on 30% FiO2 ETT vent; af2 19:25 BP 148 / 103 (auto/); af2 19:25 Pulse 97 MON; Pulse Ox 100% ; af2 19:28 BP 141 / 102 (auto/); af2 19:28 Pulse 98 MON; Resp 16 S; Pulse Ox 100% on 30% FiO2 ETT vent; af2 19:30 BP 148 / 106 (auto/); af2 19:30 Pulse 97 MON; Pulse Ox 100% ; af2 19:33 BP 148 / 102 (auto/); af2 19:33 Pulse 98 MON; Resp 16 S; Pulse Ox 100% on 30% FiO2 ETT vent; af2 19:35 BP 148 / 101 (auto/); af2 19:35 Pulse 97 MON; Pulse Ox 100% ; af2 19:40 BP 180 / 114 (auto/); af2 19:40 Pulse 97 MON; Resp 16 A; Pulse Ox 100% on 30% FiO2 ETT vent; af2 19:43 BP 177 / 121 (auto/); af2 19:43 Pulse 98 MON; Pulse Ox 100% ; af2 19:45 BP 171 / 116 (auto/); af2 19:45 Pulse 97 MON; Resp 16 A; Pulse Ox 100% on 30% FiO2 ETT vent; af2 19:48 BP 176 / 119 (auto/); af2 19:48 Pulse 101 MON; Pulse Ox 100% ; af2 19:50 BP 176 / 114 (auto/); af2 19:50 Pulse 102 MON; Resp 16 A; Pulse Ox 100% on 30% FiO2 ETT vent; af2 19:53 BP 145 / 103 (auto/); af2 19:53 Pulse 103 MON; Pulse Ox 100% ; af2 19:55 BP 163 / 114 (auto/); af2 19:55 Pulse 105 MON; Resp 16 A; Pulse Ox 100% on 30% FiO2 ETT vent; af2 19:58 BP 163 / 112 (auto/); af2 19:58 Pulse 103 MON; Resp 16 A; Pulse Ox 100% on 30% FiO2 ETT vent; af2 20:00 BP 159 / 112 (auto/); af2 20:00 Pulse 103 MON; Pulse Ox 100% ; af2 20:03 BP 154 / 106 (auto/); af2 20:03 Pulse 103 MON; Pulse Ox 100% ; af2 20:05 BP 149 / 103 (auto/); af2 20:05 Pulse 103 MON; Resp 16 A; Pulse Ox 100% on 30% FiO2 ETT vent; af2 20:08 BP 150 / 104 (auto/); af2 20:08 Pulse 103 MON; Pulse Ox 99% ; af2 20:10 BP 146 / 100 (auto/); af2 20:10 Pulse 102 MON; Pulse Ox 99% ; af2 20:13 BP 136 / 97 (auto/); af2 20:13 Pulse 103 MON; Pulse Ox 99% ; af2 20:15 BP 137 / 101 (auto/); af2 20:15 Pulse 102 MON; Resp 16 A; Temp 96.9(TE); Pulse Ox 99% on 30% FiO2 ETT vent; af2 20:17 Pulse 102 MON; Pulse Ox 99% ; af2 20:18 BP 138 / 104 (auto/); af2 20:20 BP 141 / 104 (auto/); af2 20:20 Pulse 101 MON; Pulse Ox 99% ; af2 20:23 BP 146 / 96 (auto/); af2 20:23 Pulse 100 MON; Pulse Ox 99% ; af2 20:25 BP 137 / 98 (auto/); af2 20:25 Pulse 100 MON; Pulse Ox 99% ; af2 20:28 Pulse 100 MON; Pulse Ox 99% ; af2 20:28 BP 137 / 96 (auto/); af2 20:30 BP 135 / 90 (auto/); af2 20:30 Pulse 100 MON; Resp 16 A; Pulse Ox 99% on 30% FiO2 ETT vent; af2 20:33 BP 142 / 102 (auto/); af2 20:33 Pulse 100 MON; Resp 16 A; Pulse Ox 99% on 30% FiO2 ETT vent; af2 20:35 BP 142 / 94 (auto/); af2 20:35 Pulse 99 MON; Resp 16 A; Pulse Ox 100% on 30% FiO2 ETT vent; af2 Ventilator: 15:45 Fi02: 40%; Rate: 14min; T.V.: 420ml; Peep: 5cm; ET tube: 7.5 mm (Oral); jo3 15:45 Fi02: 40%; Rate: 14min; T.V.: 420ml; Peep: 5cm; ET tube: 7.5 mm (Oral); jo3 Procedures: 18:13 Intubation: Ventilated with 100% NRB prior to procedure. O2 saturation prior to sd1 procedure was 100 %. Intubated orally using # 4 Martin blade with 7.5 Fr. ETT. was successful on first attempt. Ventilated with ventilator. Cricoid pressure applied during procedure. Placement verified by CXR, CO2 detector w/ + color change, auscultating bilateral breath sounds, O2 saturation after procedure was 100 %. Patient tolerated well. Central Line: the site was prepped with Betadine, in sterile fashion, a triple lumen catheter was inserted, in the right femoral vein, placement was verified, by blood return, ABG, the site was dressed with using sterile technique, op site with chg, the patient tolerated the procedure, well, Ultrasound was not used in the insertion of the central line. MDM: 15:42 Chest, 1 View Ordered. EDMS 15:53 Division Chief/Pulse Ox/q 15 min VS ordered. kpj 15:53 Accucheck ordered. kpj 15:53 IV Saline Lock x 2 ordered. kpj 15:53 Rhythm Strip to chart ordered. kpj 15:53 Intake and Output Hourly ordered. kpj 15:53 Trauma Level 1 Designation ordered. kpj 15:53 Type & Screen Ordered. EDMS 15:53 Type and Cross, Packed Cells Ordered. EDMS 15:54 Basic Metabolic Profile Ordered. EDMS 15:54 CBC with Diff Ordered. EDMS 15:54 Cardiac Injury Profile Ordered. EDMS 15:54 HCG,Serum Qualitative Ordered. EDMS 15:54 Lipase Ordered. EDMS 15:54 Liver Profile Ordered. EDMS 15:54 PT/INR Ordered. EDMS 15:54 PTT Ordered. EDMS 15:54 Troponin Ordered. EDMS 15:54 Urinalysis Ordered. EDMS 15:55 CT ABD & PELVIS: IV Contrast Only Ordered. EDMS 15:55 CT Chest With Contrast Ordered. EDMS 15:55 CT Head Without Contrast Ordered. EDMS 15:55 CT Spine,Cervical W/o Contrast Ordered. EDMS 15:55 ECG WITH READING ER PHYS+CARDIAG ordered. EDMS 15:55 NOTHING BY MOUTH+DIET ordered. EDMS 15:58 Urine Toxicology Ordered. EDMS 16:01 Call Respiratory ordered. kpj 16:02 ACETAMINOPHEN LEVEL Ordered. EDMS 16:02 ETHYL ALCOHOL (ETHANOL) Ordered. EDMS 16:02 SALICYLATE LEVEL Ordered. EDMS 16:02 Call Respiratory complete. kpj 16:02 -Arterial Blood Gas Ordered. EDMS 16:41 CBC with Diff Reviewed. sd1 16:41 Urinalysis Reviewed. sd1 16:41 Urine Toxicology Reviewed. sd1 16:41 -Arterial Blood Gas Reviewed. sd1 17:00 CT Head Without Contrast Reviewed. sd1 17:00 CT Spine,Cervical W/o Contrast Reviewed. sd1 17:01 Ammonia ([place] Tube on Ice, Not [place]) Ordered. EDMS 17:01 Lactic Acid (Ag tube on ice) Ordered. EDMS 17:01 -Arterial Blood Gas Ordered. EDMS 17:22 -Arterial Blood Gas Ordered. EDMS 17:39 -Arterial Blood Gas Reviewed. sd1 17:39 EKG-ADULT Reviewed. sd1 17:42 -Arterial Blood Gas Reviewed. sd1 17:45 PT/INR Reviewed. sd1 17:55 PTT Reviewed. sd1 17:55 HCG,Serum Qualitative Reviewed. sd1 17:55 PT/INR Reviewed. sd1 18:01 Basic Metabolic Profile Reviewed. sd1 18:01 ACETAMINOPHEN LEVEL Reviewed. sd1 18:01 SALICYLATE LEVEL Reviewed. sd1 18:01 Cardiac Injury Profile Reviewed. sd1 18:01 HCG,Serum Qualitative Reviewed. sd1 18:01 Lipase Reviewed. sd1 18:01 Liver Profile Reviewed. sd1 18:01 Troponin Reviewed. sd1 18:01 ETHYL ALCOHOL (ETHANOL) Reviewed. sd1 18:01 Lactic Acid (Ag tube on ice) Reviewed. sd1 18:04 Ammonia ([place] Tube on Ice, Not [place]) Reviewed. sd1 18:04 Osmolality, Serum Ordered. EDMS 18:14 MAGNESIUM LEVEL Ordered. EDMS 18:17 naloxone 2 mg IVP once ordered. jo3 18:18 Etomidate 20 mg IVP once ordered. jo3 18:20 Succinylcholine 120 mg IV at bolus once ordered. jo3 18:21 Propofol (PF) 40 mg IVP once ordered. jo3 18:21 Propofol (PF) 20 mg IVP once ordered. jo3 18:21 Propofol (PF) 40 mg IVP once ordered. jo3 18:22 Propofol (PF) 10 mcg/kg/min IVPB continuous; titrate to Lilian 3-4 ordered. jo3 18:23 Midazolam 2 mg IVP once ordered. jo3 18:24 Admission / Observation Status ordered. EDMS 18:24 NPO DIET ordered. EDMS 18:25 ARTERIAL BLOOD GAS Ordered. EDMS 18:26 VENTILATOR SETTINGS ordered. EDMS 18:27 PORTABLE CHEST X-RAY Ordered. EDMS 18:27 PORTABLE CHEST X-RAY Ordered. EDMS 18:27 PORTABLE CHEST X-RAY Ordered. EDMS 18:27 PORTABLE CHEST X-RAY Ordered. EDMS 18:27 PORTABLE CHEST X-RAY Ordered. EDMS 18:27 PORTABLE CHEST X-RAY Ordered. EDMS 18:27 PORTABLE CHEST X-RAY Ordered. EDMS 18:27 PORTABLE CHEST X-RAY Ordered. EDMS 18:51 Propofol (PF) 40 mg IVP once ordered. jo3 19:07 [facility] Payment Agreement was scanned into [employer] and attached to record. b 19:07 Financial registration complete. gjb 19:32 ARTERIAL BLOOD GAS Ordered. EDMS 19:33 CBC WITH DIFFERENTIAL Ordered. EDMS 19:33 CRITICAL CARE PROFILE Ordered. EDMS 19:41 ANTIBODY IDENTIFICATION Ordered. EDMS Administered Medications: 15:31 Drug: naloxone 2 mg [naloxone 1 mg/mL injection syringe (2 mL)] Route: IVP; Site: right jo3 hand; 15:38 Drug: Etomidate 20 mg [etomidate 2 mg/mL intravenous solution (10 mL)] Route: IVP; jo3 Site: right hand; 15:38 Drug: Succinylcholine 120 mg Route: IV; Rate: bolus; Site: right hand; jo3 16:22 Drug: Midazolam 2 mg [midazolam 1 mg/mL injection solution (2 mL)] Route: IVP; Site: jo3 right hand; 17:38 Drug: Propofol (PF) 40 mg [propofol (PF) 1,000 mg/100 mL (10 mg/mL) intravenous jo3 emulsion (4 mL)] Route: IVP; Site: right hand; 17:38 Drug: Propofol (PF) 725.7 mcg/min Route: IVPB; Site: right hand; jo3 17:48 Follow up: Increased to 15mcg/kg/min jo3 17:54 Follow up: Increased to 20mcg/kg/min jo3 18:53 Follow up: Increased to 25mcg/kg/min jo3 19:10 Follow up: Rate change 30 mcg/kg/min af2 19:17 Follow up: Rate change 40 mcg/kg/min af2 19:36 Follow up: Rate change 50 mcg/kg/min af2 19:41 Follow up: Rate change 60 mcg/kg/min af2 19:46 Follow up: Rate change 70 mcg/kg/min af2 19:50 Follow up: Rate change 80 mcg/kg/min af2 19:58 Follow up: Rate change 90 mcg/kg/min af2 20:04 Follow up: Rate change 100 mcg/kg/min af2 20:14 Follow up: Rate change 110 mcg/kg/min af2 17:48 Drug: Propofol (PF) 40 mg [propofol (PF) 1,000 mg/100 mL (10 mg/mL) intravenous jo3 emulsion (4 mL)] Route: IVP; Site: right hand; 17:54 Drug: Propofol (PF) 20 mg [propofol (PF) 1,000 mg/100 mL (10 mg/mL) intravenous jo3 emulsion (2 mL)] Route: IVP; Site: right hand; 18:48 Drug: Propofol (PF) 40 mg [propofol (PF) 1,000 mg/100 mL (10 mg/mL) intravenous jo3 emulsion (4 mL)] Route: IVP; Site: right hand; Signatures: Dispatcher [employer] EDYvonne Baca MD MD sdMikayla Sandoval RN RN [facility] Aurelio Darden, Simulation Specialist Unit 3 Gayle Adams RN RN jo3 Rachana Palencia RN RN af2 Rose Prasad The chart was reviewed and I authenticate all verbal orders and agree with the evaluation and treatment provided.Corrections: (The following items were deleted from the chart) 15:53 15:53 MRI Screening Tool - Place on chart, inform RN ordered. [facility] 16:02 15:58 ETHYL ALCOHOL (ETHANOL)+LAB ordered. EDMS EDMS 16:02 15:58 ACETAMINOPHEN LEVEL+LAB ordered. EDMS EDMS 16:02 15:58 SALICYLATE LEVEL+LAB ordered. EDMS EDMS 18:14 18:04 MAGNESIUM LEVEL+LAB ordered. EDMS EDMS 18: 18:25 MAGNESIUM LEVEL ordered. EDMS EDMS 18:44 18:25 PHOSPHOROUS LEVEL ordered. EDMS EDMS Attachments: 19:07 [facility] Payment Agreement gjb [id number]
[2016-04-28 21:01] VITALS: BP 116/77
[2016-04-28] MEDS: D5W/0.45% SODIUM CHLORIDE 1,000 ML IV SCH (21:10)
[2016-04-28] MEDS: ALBUTEROL SULFATE 2.5 MG/0.5 ML INH NEB SOLN NEB SCH (21:19)
[2016-04-28 21:30] VITALS: BP 111/77
[2016-04-28] MEDS: HEPARIN SOD (PORCINE) 5000 UNITS/ML VIAL SC SCH (21:32)
[2016-04-28] MEDS: CHLORHEXIDINE GLUCONATE 0.12 % 15ML UDC (PERIDEX ORAL RINSE) MT SCH (21:32)
[2016-04-28 22:00] VITALS: BP 114/82
[2016-04-28] MEDS: PROPOFOL 1,000 MG in APPROPRIATE DILUENT 1 EA IV SCH (22:42)
[2016-04-28 23:00] VITALS: BP 113/77
[2016-04-29] VITALS (21 sets, daily range): BP systolic 111–147; BP diastolic 68–113; O2SAT 100
[2016-04-29] MEDS: HumaLOG INSULIN (NovoLOG) PER UNIT SC SCH ×5 (00:24→23:55)
[2016-04-29] MEDS: PROPOFOL 1,000 MG in APPROPRIATE DILUENT 1 EA IV SCH ×2 (01:13→05:11)
[2016-04-29] MEDS ORDERED: SODIUM CHLORIDE 0.9% INJ 10 ML SYR IV PRN (02:15)
[2016-04-29 04:56] LABS: BASO % 0.3 % (0.0-1.0); EOS # 0.1 K/mm3 (0.0-0.50); EOS % 0.9 % (0.0-3.0); LARGE UNSTAINED CELL # 0.1 K/mm3 (0.0-0.4); LYMPH % 16.6 % (24.0-44.0); MEAN CORPUSCULAR HGB CONC 34.1 g/dl (32.0-36.5); MEAN CORPUSCULAR VOLUME 84.9 fl (80.0-96.0); MONO # 0.5 K/mm3 (0.0-0.8); MONO % 4.7 % (0.0-5.0); NEUTROPHILS # 8.5 K/mm3 (1.8-7.7); NEUTROPHILS % 76.5 % (36.0-66.0); PLATELET COUNT, AUTOMATED 253 k/mm3 (150-450); RED CELL DISTRIBUTION WIDTH 13.3 % (11.5-14.5); WHITE BLOOD COUNT 11.1 K/mm3 (4.0-10.0)
[2016-04-29 05:06] LABS: ALBUMIN 3.5 GM/DL (3.2-5.2); ALBUMIN/GLOBULIN RATIO 1.09 (1.00-1.93); ALKALINE PHOSPHATASE 100 U/L (45-117); ALT/SGPT 40 U/L (12-78); ANION GAP 9 MEQ/L (8-16); AST/SGOT 22 U/L (15-37); BILIRUBIN,TOTAL 0.3 MG/DL (0.2-1.0); BLOOD UREA NITROGEN 16 MG/DL (7-18); CALCIUM LEVEL 8.7 MG/DL (8.5-10.1); CARBON DIOXIDE LEVEL 29 MEQ/L (21-32); CHLORIDE LEVEL 104 MEQ/L (98-107); CHOLESTEROL LEVEL 207 MG/DL (< 200); CREATININE FOR GFR 0.86 MG/DL (0.55-1.02); GLOMERULAR FILTRATION RATE > 60.0 (>60); GLUCOSE, FASTING 243 MG/DL (70-105); PHOSPHORUS LEVEL 3.5 MG/DL (2.5-4.9); POTASSIUM SERUM 3.4 MEQ/L (3.5-5.1); SODIUM LEVEL 142 MEQ/L (136-145); TOTAL PROTEIN 6.7 GM/DL (6.4-8.2); TRIGLYCERIDES LEVEL 178 MG/DL (<150)
[2016-04-29] MEDS: HEPARIN SOD (PORCINE) 5000 UNITS/ML VIAL SC SCH ×3 (05:12→21:39)
[2016-04-29] MEDS: SODIUM CHLORIDE 0.9% INJ 10 ML SYR IV SCH ×3 (05:13→21:38)
[2016-04-29 05:48] LABS: ABG BASE EXCESS 1.1 (-2.0-2.0); ABG HCO3 24.8 MEQ/L (22.0-26.0); ABG PARTIAL PRESSURE CO2 36.6 mmHg (35.0-45.0); ABG PARTIAL PRESSURE O2 125.8 mmHg (75.0-100.0); ABG STANDARD HCO3 25.4 MEQ/L (22.0-26.0); ABG TOTAL CO2 25.9 MEQ/L (22.0-29.0); ABG pH (ARTERIAL) 7.448 UNITS (7.350-7.450)
--- NOTE | 2016-04-29 05:48 | REP ---
Supine chest x-ray: Single view. History: Trauma. Findings: An endotracheal tube has been passed into good position at the level of the transverse aorta. An NG tube enters the body of the stomach. There are clips in the right upper quadrant. The lungs are symmetrically aerated. There is no evidence of pneumothorax or hydrothorax. Mediastinum is not widened. Heart size is normal. Lung olivares are clear. No rib or other fracture is appreciated. Impression: Endotracheal and nasogastric tubes in good position. Clips in the right upper quadrant. No acute disease. Signed by Calvin Beltrán MD 04/29/2016 02:24 P
--- NOTE | 2016-04-29 05:51 | REP ---
CT study of the chest with IV contrast: History: Trauma. CT contrast dose: 100 ml of Isovue 370 is administered intravenously. Findings: Orotracheal and oroesophageal tubes are noted in place. There is no evidence of pneumothorax or hydrothorax. Lungs are symmetrically aerated and clear. No mediastinal hematoma is seen. Thoracic aorta enhances homogeneously and is normal in course and caliber. No vascular abnormality is seen. No extrathoracic lesion is seen. Bone window settings show no visible fracture. Impression: No active cardiopulmonary disease. Orotracheal and oroesophageal tubes in good position. No traumatic abnormality noted. Signed by Calvin Beltrán MD 04/29/2016 02:24 P
--- NOTE | 2016-04-29 05:52 | REP ---
CT abdomen and pelvis with IV contrast: History: Trauma. CT contrast dose: 100 ml of Isovue [address] findings: There are clips in the gallbladder fossa. There is a periportal liver cyst measuring 4.8 cm in greatest diameter. There is mild fatty infiltration of the liver. The liver and spleen are intact and otherwise homogeneous. No adrenal lesion is seen. Kidneys enhance symmetrically and are morphologically intact. There is a 2.2 cm cyst in the upper pole of the left kidney. No pancreatic lesion is seen. A nasogastric tube enters the body of the stomach. Small and large intestinal bowel loops are unremarkable. A Castaneda catheter is noted in the empty bladder. The patient appears to be status post hysterectomy. No abdominal wall defect is seen. There are clips in the presacral soft tissues. Normal caliber aorta is seen. Bone window settings show no bony destructive lesion or fracture. Impression: 4.7 cm hepatic cyst. Otherwise normal CT study of the abdomen and pelvis. No fracture or other traumatic abnormality seen. There is a 2.2 cm cyst in the upper pole of the left kidney. Status post cholecystectomy and hysterectomy. Surgical clips anterior to the sacrum. NG tube in the stomach. Signed by Calvin Beltrán MD 04/29/2016 02:24 P
--- NOTE | 2016-04-29 07:38 | REP ---
Clinical: Endotracheal tube placement . Comparison: 04/28/2016 . Findings: The tracheal tube is approximately 2.4 cm from the diandra. Nasogastric tube courses below left hemidiaphragm. The mediastinum and cardiac silhouette are stable and within normal limits for portable technique. The lung olivares are without acute consolidation, effusion, or pneumothorax. Skeletal structures are intact. Impression: I. Endotracheal tube and nasogastric tube in satisfactory position. II. No significant focal consolidation, effusion, or pneumothorax. Signed by Lazaro Cervantes MD 04/29/2016 07:29 A
[2016-04-29] MEDS: ALBUTEROL SULFATE 2.5 MG/0.5 ML INH NEB SOLN NEB SCH (07:45)
[2016-04-29] MEDS: D5W/0.45% SODIUM CHLORIDE 1,000 ML IV SCH ×2 (08:20→21:39)
[2016-04-29] MEDS: CHLORHEXIDINE GLUCONATE 0.12 % 15ML UDC (PERIDEX ORAL RINSE) MT SCH (08:20)
[2016-04-29] MEDS ORDERED: PANTOPRAZOLE 40MG INJ (PROTONIX) (C9113) IV SCH (09:00)
--- NOTE | 2016-04-29 12:20 | CCN ---
DATE: 04/29/2016 CRITICAL CARE NOTE: The patient is seen in the intensive care unit intubated, mechanically ventilated, critically ill. With the withdrawal of propofol, she does have spontaneous respiratory efforts and is more awake and alert than yesterday. Her temperature is 100.3, pulse rate is 122, respirations 17, blood pressure 121/93. Intake and output for the past 24 hours 358 in and 710 out. At bedside, she is ill-appearing. There is an orogastric and endotracheal tube in good position. Neck is supple. No meningismus. Heart sounds are regular without appreciable murmur. Breath sounds are essentially clear to auscultation. No dullness. No fremitus. The abdomen is soft and extremities show no significant edema. Diagnostic studies: Sodium is 142, potassium 3.4, chloride 104, CO2 29, BUN 16, creatinine 0.8, glucose 243. White cell count is 11.1, hemoglobin 14.3, hematocrit 42, platelet count 153,000. Arterial blood gases show pH 7.45, pCO2 36, pO2 125, this on IMV mode of ventilation, rate is 16, tidal volume 350, FiO2 0.3, PEEP of 5, PSV of 10. Chest x-ray imaging was reviewed. The primary problem requiring critical attention is acute respiratory failure. The patient is on mechanical ventilatory support. Will stop sedation after a holiday if respiratory efforts allow and proceed with weaning and extubation. Altered level of consciousness: The etiology of the patient's altered level of consciousness is unclear. She did have positive toxicology screen for opiates and toxic ingestion is suspected. There was no evidence of trauma on physical exam or imaging study. We will proceed cautiously. Deep venous thrombosis (DVT) and ulcer prophylaxis are in place. Glycemic control is acceptable. The patient's condition is critical. Prognosis is guarded. 78 minutes was spent provision of bedside critical care and coordination.
[2016-04-29] MEDS: ACETAMINOPHEN TAB 650MG DOSE (2X325MG) PO PRN ×3 (12:26→21:37)
[2016-04-29 13:21] LABS: FREE T4 1.39 NG/DL (0.76-1.46)
[2016-04-29] MEDS ORDERED: POTASSIUM CHLORIDE 10% LIQ 20 MEQ/15 ML UDC PO ONE (14:00)
[2016-04-29] MEDS ORDERED: ETOMIDATE INJ 20MG/10ML VIAL ONE (14:28)
[2016-04-29] MEDS ORDERED: SUCCINYLCHOLINE 100 MG/5 ML SYRINGE (J0330) ONE (14:28)
[2016-04-29] MEDS ORDERED: MORPHINE 2 MG/ML 1ML SYRINGE IV ONE (16:00)
[2016-04-29] MEDS: IBUPROFEN 800 MG TAB PO PRN ×2 (18:08→23:56)
[2016-04-29] MEDS ORDERED: INSULANT SC (19:53)
[2016-04-29] MEDS ORDERED: ADDE20CA PO (19:53)
[2016-04-29] MEDS ORDERED: KEPP500T6 PO (19:53)
[2016-04-29] MEDS ORDERED: KLON2TAB PO (19:53)
[2016-04-29] MEDS ORDERED: LEVO100T5 PO (19:53)
[2016-04-29] MEDS ORDERED: INSUH10VL SC (19:53)
[2016-04-29] MEDS: levETIRAcetam 250MG TABLET (KEPPRA) PO SCH (21:38)
[2016-04-30] VITALS: BP 116/66
[2016-04-30 04:00] VITALS: BP 106/62
[2016-04-30] MEDS: ACETAMINOPHEN TAB 650MG DOSE (2X325MG) PO PRN ×3 (04:47→20:09)
[2016-04-30] MEDS: LEVOTHYROXINE 0.1 MG TAB (100 MCG) PO SCH (05:16)
[2016-04-30] MEDS: SODIUM CHLORIDE 0.9% INJ 10 ML SYR IV SCH (05:16)
[2016-04-30] MEDS: HEPARIN SOD (PORCINE) 5000 UNITS/ML VIAL SC SCH ×3 (05:16→21:01)
[2016-04-30 05:17] LABS: BASO # 0.1 K/mm3 (0.0-0.2); BASO % 0.4 % (0.0-1.0); EOS # 0.1 K/mm3 (0.0-0.50); LARGE UNSTAINED CELL # 0.2 K/mm3 (0.0-0.4); LARGE UNSTAINED CELL % 1.2 % (0.0-4.0); LYMPH # 2.4 K/mm3 (1.5-4.5); LYMPH % 18.1 % (24.0-44.0); MEAN CORPUSCULAR HEMOGLOBIN 28.9 pg (27.0-33.0); MEAN CORPUSCULAR VOLUME 87.6 fl (80.0-96.0); MONO # 0.6 K/mm3 (0.0-0.8); MONO % 4.1 % (0.0-5.0); NEUTROPHILS # 9.9 K/mm3 (1.8-7.7); NEUTROPHILS % 75.2 % (36.0-66.0); PLATELET COUNT, AUTOMATED 224 k/mm3 (150-450); RED CELL DISTRIBUTION WIDTH 12.8 % (11.5-14.5); WHITE BLOOD COUNT 13.2 K/mm3 (4.0-10.0)
[2016-04-30 05:42] LABS: ALBUMIN 2.7 GM/DL (3.2-5.2); ALBUMIN/GLOBULIN RATIO 0.82 (1.00-1.93); ALKALINE PHOSPHATASE 84 U/L (45-117); ALT/SGPT 27 U/L (12-78); ANION GAP 8 MEQ/L (8-16); AST/SGOT 16 U/L (15-37); BILIRUBIN,TOTAL 0.3 MG/DL (0.2-1.0); BLOOD UREA NITROGEN 12 MG/DL (7-18); CARBON DIOXIDE LEVEL 27 MEQ/L (21-32); CHLORIDE LEVEL 108 MEQ/L (98-107); CHOLESTEROL LEVEL 142 MG/DL (< 200); CREATININE FOR GFR 0.76 MG/DL (0.55-1.02); GLOMERULAR FILTRATION RATE > 60.0 (>60); GLUCOSE, FASTING 285 MG/DL (70-105); POTASSIUM SERUM 3.1 MEQ/L (3.5-5.1); SODIUM LEVEL 143 MEQ/L (136-145); TRIGLYCERIDES LEVEL 170 MG/DL (<150)
[2016-04-30 06:25] VITALS: BP 121/74
--- NOTE | 2016-04-30 07:06 | REP ---
Clinical: Endotracheal tube placement . Comparison: 04/29/2016 . Findings: The mediastinum and cardiac silhouette are stable and within normal limits for portable technique. No endotracheal tube or nasogastric tube is identified on current examination. The lung olivares are clear without acute consolidation, effusion, or pneumothorax. Skeletal structures are intact. Impression: Normal portable chest x-ray . No endotracheal tube or nasogastric tube identified. Signed by Lazaro Cervantes MD 04/30/2016 06:57 A
[2016-04-30] MEDS ORDERED: POTASSIUM CHLORIDE 10 MEQ SR TABLET PO ONE (07:15)
[2016-04-30] MEDS: HumaLOG INSULIN (NovoLOG) PER UNIT SC SCH ×3 (08:59→17:54)
[2016-04-30] MEDS: levETIRAcetam 250MG TABLET (KEPPRA) PO SCH ×2 (08:59→20:58)
[2016-04-30] MEDS: LEVEMIR (INSULIN DETEMIR) 1 UNITS/0.01ML SC SCH (08:59)
[2016-04-30] MEDS: IBUPROFEN 800 MG TAB PO PRN ×3 (09:13→21:44)
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
[2016-04-30 14:00] VITALS: BP 137/81
[2016-04-30] MEDS ORDERED: HumaLOG INSULIN (NovoLOG) PER UNIT SC SCH (21:00)
[2016-04-30 22:00] VITALS: BP 117/60
--- NOTE | 2016-04-30 22:00 | EDDOCDS ---
Physician Documentation [facility] Name: Babs Caldwell Age: 35 yrs Sex: Female : 1980 Arrival Date: 04/28/2016 Time: 15:29 Bed 3 Private MD: Disposition: 04/28/16 18:30 Hospitalization ordered by Jacobo Kramer for Inpatient Admission. Preliminary diagnosis is Altered mental status, unspecified. - Bed requested for M ICU. - Status is Inpatient Admission. af2 - Condition is Stable. - Problem is new. - Symptoms have improved. Historical: - Allergies: Unable to obtain; - Home Meds: 1. Adderall oral oral - PMHx: Unable to obtain; - PSHx: Unable to obtain; - Social history: Smoking status: unknown if patient ever smoked tobacco. unresponsive. - Family history: Not pertinent. - : Unable to assess if pt is on anticoagulants. Unable to Verify Home Med List with the patient / caregiver. - Exposure Risk Screening:: Unable to Assess. HEAD COUNSELOR: 04/28 15:26 unk jo3 Vital Signs: 15:29 BP 155 / 112; Pulse 95; Resp 12; Pulse Ox 100% ; jo3 15:30 BP 141 / 103 (auto/); jo3 15:34 BP 155 / 112 (auto/); jo3 15:34 Pulse 98 MON; Pulse Ox 88% ; jo3 15:42 BP 243 / 146 (auto/); jo3 15:45 BP 202 / 122 (auto/); jo3 15:50 BP 173 / 112 (auto/); jo3 16:05 BP 156 / 102 (auto/); jo3 16:10 BP 172 / 106 (auto/); Pulse 82; Resp 14; Temp 96.9(R); jo3 16:15 BP 169 / 102 (auto/); jo3 16:17 BP 157 / 106 (auto/); jo3 16:17 Pulse 79 MON; Pulse Ox 100% ; jo3 16:22 BP 152 / 105 (auto/); jo3 16:22 Pulse 82 MON; Pulse Ox 100% ; jo3 16:23 BP 151 / 103 (auto/); jo3 16:23 Pulse 82 MON; Pulse Ox 100% ; jo3 16:24 BP 138 / 80 RA (man/); jo3 16:25 BP 150 / 108 (auto/); jo3 16:25 Pulse 87 MON; Pulse Ox 100% ; jo3 16:28 BP 153 / 100 (auto/); jo3 16:28 Pulse 88 MON; Pulse Ox 100% ; jo3 16:30 BP 145 / 103 (auto/); jo3 16:30 Pulse 94 MON; Pulse Ox 100% ; jo3 16:33 BP 142 / 101 (auto/); jo3 16:33 Pulse 90 MON; Pulse Ox 100% ; jo3 16:35 BP 142 / 104 (auto/); jo3 16:35 Pulse 87 MON; Pulse Ox 100% ; jo3 16:38 BP 147 / 109 (auto/); jo3 16:38 Pulse 84 MON; Pulse Ox 100% ; jo3 16:40 BP 147 / 101 (auto/); jo3 16:40 Pulse 84 MON; Pulse Ox 100% ; jo3 16:43 BP 144 / 105 (auto/); jo3 16:43 Pulse 82 MON; Pulse Ox 100% ; jo3 16:45 BP 149 / 109 (auto/); jo3 16:45 Pulse 81 MON; Pulse Ox 100% ; jo3 16:48 BP 151 / 112 (auto/); jo3 16:48 Pulse 78 MON; Pulse Ox 100% ; jo3 16:50 BP 146 / 106 (auto/); jo3 16:50 Pulse 79 MON; Pulse Ox 100% ; jo3 16:53 BP 155 / 110 (auto/); jo3 16:53 Pulse 81 MON; Pulse Ox 100% ; jo3 16:55 BP 161 / 113 (auto/); jo3 16:55 Pulse 80 MON; Pulse Ox 100% ; jo3 16:58 BP 156 / 113 (auto/); jo3 16:58 Pulse 80 MON; Pulse Ox 100% ; jo3 17:00 BP 143 / 102 (auto/); jo3 17:00 Pulse 81 MON; Pulse Ox 100% ; jo3 17:03 BP 145 / 106 (auto/); jo3 17:03 Pulse 80 MON; Pulse Ox 100% ; jo3 17:05 BP 148 / 100 (auto/); jo3 17:05 Pulse 81 MON; Pulse Ox 100% ; jo3 17:08 BP 153 / 108 (auto/); jo3 17:09 Pulse 78 MON; Pulse Ox 100% ; jo3 17:10 BP 158 / 108 (auto/); jo3 17:10 Pulse 80 MON; Pulse Ox 100% ; jo3 17:13 BP 156 / 104 (auto/); jo3 17:13 Pulse 85 MON; Pulse Ox 100% ; jo3 17:15 BP 144 / 103 (auto/); jo3 17:15 Pulse 85 MON; Pulse Ox 100% ; jo3 17:18 BP 144 / 103 (auto/); jo3 17:18 Pulse 82 MON; Pulse Ox 100% ; jo3 17:20 BP 148 / 108 (auto/); jo3 17:20 Pulse 81 MON; Pulse Ox 100% ; jo3 17:23 BP 145 / 104 (auto/); jo3 17:23 Pulse 81 MON; Pulse Ox 100% ; jo3 17:25 BP 144 / 104 (auto/); jo3 17:25 Pulse 81 MON; Pulse Ox 100% ; jo3 17:28 Weight 72.57 kg / 159.99 lbs (M); ar3 17:28 BP 149 / 100 (auto/); jo3 17:28 Pulse 82 MON; Pulse Ox 100% ; jo3 17:30 BP 154 / 103 (auto/); jo3 17:30 Pulse 83 MON; Pulse Ox 100% ; jo3 17:33 BP 142 / 111 (auto/); jo3 17:33 Pulse 82 MON; Pulse Ox 100% ; jo3 17:35 BP 148 / 98 (auto/); jo3 17:35 Pulse 84 MON; jo3 17:38 BP 119 / 87 (auto/); jo3 17:38 Pulse 83 MON; Pulse Ox 100% ; jo3 17:40 BP 148 / 105 (auto/); jo3 17:40 Pulse 95 MON; Pulse Ox 100% ; jo3 17:43 BP 146 / 108 (auto/); jo3 17:43 Pulse 100 MON; Pulse Ox 100% ; jo3 17:45 Pulse 99 MON; Pulse Ox 100% ; jo3 17:45 BP 146 / 110 (auto/); jo3 17:48 BP 139 / 104 (auto/); jo3 17:48 Pulse 93 MON; Pulse Ox 100% ; jo3 17:50 BP 146 / 106 (auto/); jo3 17:50 Pulse 96 MON; Pulse Ox 100% ; jo3 17:53 BP 140 / 104 (auto/); jo3 17:53 Pulse 95 MON; Pulse Ox 100% ; jo3 17:55 BP 147 / 110 (auto/); jo3 17:55 Pulse 93 MON; Pulse Ox 100% ; jo3 17:58 BP 138 / 108 (auto/); jo3 17:58 Pulse 91 MON; Pulse Ox 100% ; jo3 18:00 BP 148 / 112 (auto/); jo3 18:00 Pulse 89 MON; Pulse Ox 100% ; jo3 18:03 BP 151 / 114 (auto/); jo3 18:03 Pulse 88 MON; Pulse Ox 100% ; jo3 18:05 BP 157 / 114 (auto/); jo3 18:05 Pulse 88 MON; Pulse Ox 100% ; jo3 18:08 BP 158 / 113 (auto/); jo3 18:08 Pulse 89 MON; Pulse Ox 100% ; jo3 19:03 BP 144 / 106 (auto/); af2 19:03 Pulse 93 MON; Resp 16 A; Pulse Ox 100% on 30% FiO2 ETT vent; af2 19:05 BP 151 / 107 (auto/); af2 19:05 Pulse 92 MON; Resp 16 A; Pulse Ox 100% on 30% FiO2 ETT vent; af2 19:08 BP 165 / 109 (auto/); af2 19:08 Pulse 93 MON; Resp 16 A; Pulse Ox 100% on 30% FiO2 ETT vent; af2 19:10 BP 153 / 109 (auto/); af2 19:10 Pulse 94 MON; Resp 16 A; Pulse Ox 100% on 30% FiO2 ETT vent; af2 19:13 BP 149 / 102 (auto/); af2 19:13 Pulse 95 MON; Resp 16 A; Pulse Ox 100% on 30% FiO2 ETT vent; af2 19:15 BP 154 / 101 (auto/); af2 19:15 Pulse 95 MON; Resp 16 A; Pulse Ox 100% on 30% FiO2 ETT vent; af2 19:18 BP 146 / 104 (auto/); af2 19:18 Pulse 94 MON; Resp 16 A; Pulse Ox 100% on 30% FiO2 ETT vent; af2 19:20 BP 151 / 107 (auto/); af2 19:20 Pulse 96 MON; Resp 16 A; Pulse Ox 100% on 30% FiO2 ETT vent; af2 19:23 BP 156 / 99 (auto/); af2 19:23 Pulse 96 MON; Resp 16 S; Pulse Ox 100% on 30% FiO2 ETT vent; af2 19:25 BP 148 / 103 (auto/); af2 19:25 Pulse 97 MON; Pulse Ox 100% ; af2 19:28 BP 141 / 102 (auto/); af2 19:28 Pulse 98 MON; Resp 16 S; Pulse Ox 100% on 30% FiO2 ETT vent; af2 19:30 BP 148 / 106 (auto/); af2 19:30 Pulse 97 MON; Pulse Ox 100% ; af2 19:33 BP 148 / 102 (auto/); af2 19:33 Pulse 98 MON; Resp 16 S; Pulse Ox 100% on 30% FiO2 ETT vent; af2 19:35 BP 148 / 101 (auto/); af2 19:35 Pulse 97 MON; Pulse Ox 100% ; af2 19:40 BP 180 / 114 (auto/); af2 19:40 Pulse 97 MON; Resp 16 A; Pulse Ox 100% on 30% FiO2 ETT vent; af2 19:43 BP 177 / 121 (auto/); af2 19:43 Pulse 98 MON; Pulse Ox 100% ; af2 19:45 BP 171 / 116 (auto/); af2 19:45 Pulse 97 MON; Resp 16 A; Pulse Ox 100% on 30% FiO2 ETT vent; af2 19:48 BP 176 / 119 (auto/); af2 19:48 Pulse 101 MON; Pulse Ox 100% ; af2 19:50 BP 176 / 114 (auto/); af2 19:50 Pulse 102 MON; Resp 16 A; Pulse Ox 100% on 30% FiO2 ETT vent; af2 19:53 BP 145 / 103 (auto/); af2 19:53 Pulse 103 MON; Pulse Ox 100% ; af2 19:55 BP 163 / 114 (auto/); af2 19:55 Pulse 105 MON; Resp 16 A; Pulse Ox 100% on 30% FiO2 ETT vent; af2 19:58 BP 163 / 112 (auto/); af2 19:58 Pulse 103 MON; Resp 16 A; Pulse Ox 100% on 30% FiO2 ETT vent; af2 20:00 BP 159 / 112 (auto/); af2 20:00 Pulse 103 MON; Pulse Ox 100% ; af2 20:03 BP 154 / 106 (auto/); af2 20:03 Pulse 103 MON; Pulse Ox 100% ; af2 20:05 BP 149 / 103 (auto/); af2 20:05 Pulse 103 MON; Resp 16 A; Pulse Ox 100% on 30% FiO2 ETT vent; af2 20:08 BP 150 / 104 (auto/); af2 20:08 Pulse 103 MON; Pulse Ox 99% ; af2 20:10 BP 146 / 100 (auto/); af2 20:10 Pulse 102 MON; Pulse Ox 99% ; af2 20:13 BP 136 / 97 (auto/); af2 20:13 Pulse 103 MON; Pulse Ox 99% ; af2 20:15 BP 137 / 101 (auto/); af2 20:15 Pulse 102 MON; Resp 16 A; Temp 96.9(TE); Pulse Ox 99% on 30% FiO2 ETT vent; af2 20:17 Pulse 102 MON; Pulse Ox 99% ; af2 20:18 BP 138 / 104 (auto/); af2 20:20 BP 141 / 104 (auto/); af2 20:20 Pulse 101 MON; Pulse Ox 99% ; af2 20:23 BP 146 / 96 (auto/); af2 20:23 Pulse 100 MON; Pulse Ox 99% ; af2 20:25 BP 137 / 98 (auto/); af2 20:25 Pulse 100 MON; Pulse Ox 99% ; af2 20:28 Pulse 100 MON; Pulse Ox 99% ; af2 20:28 BP 137 / 96 (auto/); af2 20:30 BP 135 / 90 (auto/); af2 20:30 Pulse 100 MON; Resp 16 A; Pulse Ox 99% on 30% FiO2 ETT vent; af2 20:33 BP 142 / 102 (auto/); af2 20:33 Pulse 100 MON; Resp 16 A; Pulse Ox 99% on 30% FiO2 ETT vent; af2 20:35 BP 142 / 94 (auto/); af2 20:35 Pulse 99 MON; Resp 16 A; Pulse Ox 100% on 30% FiO2 ETT vent; af2 Ventilator: 15:45 Fi02: 40%; Rate: 14min; T.V.: 420ml; Peep: 5cm; ET tube: 7.5 mm (Oral); jo3 15:45 Fi02: 40%; Rate: 14min; T.V.: 420ml; Peep: 5cm; ET tube: 7.5 mm (Oral); jo3 Procedures: 18:13 Intubation: Ventilated with 100% NRB prior to procedure. O2 saturation prior to sd1 procedure was 100 %. Intubated orally using # 4 Martin blade with 7.5 Fr. ETT. was successful on first attempt. Ventilated with ventilator. Cricoid pressure applied during procedure. Placement verified by CXR, CO2 detector w/ + color change, auscultating bilateral breath sounds, O2 saturation after procedure was 100 %. Patient tolerated well. Central Line: the site was prepped with Betadine, in sterile fashion, a triple lumen catheter was inserted, in the right femoral vein, placement was verified, by blood return, ABG, the site was dressed with using sterile technique, op site with chg, the patient tolerated the procedure, well, Ultrasound was not used in the insertion of the central line. MDM: 15:42 Chest, 1 View Ordered. EDMS 15:53 Maintenance Parts Technician/Pulse Ox/q 15 min VS ordered. kpj 15:53 Accucheck ordered. kpj 15:53 IV Saline Lock x 2 ordered. kpj 15:53 Rhythm Strip to chart ordered. kpj 15:53 Intake and Output Hourly ordered. kpj 15:53 Trauma Level 1 Designation ordered. kpj 15:53 Type & Screen Ordered. EDMS 15:53 Type and Cross, Packed Cells Ordered. EDMS 15:54 Basic Metabolic Profile Ordered. EDMS 15:54 CBC with Diff Ordered. EDMS 15:54 Cardiac Injury Profile Ordered. EDMS 15:54 HCG,Serum Qualitative Ordered. EDMS 15:54 Lipase Ordered. EDMS 15:54 Liver Profile Ordered. EDMS 15:54 PT/INR Ordered. EDMS 15:54 PTT Ordered. EDMS 15:54 Troponin Ordered. EDMS 15:54 Urinalysis Ordered. EDMS 15:55 CT ABD & PELVIS: IV Contrast Only Ordered. EDMS 15:55 CT Chest With Contrast Ordered. EDMS 15:55 CT Head Without Contrast Ordered. EDMS 15:55 CT Spine,Cervical W/o Contrast Ordered. EDMS 15:55 ECG WITH READING ER PHYS+CARDIAG ordered. EDMS 15:55 NOTHING BY MOUTH+DIET ordered. EDMS 15:58 Urine Toxicology Ordered. EDMS 16:01 Call Respiratory ordered. kpj 16:02 ACETAMINOPHEN LEVEL Ordered. EDMS 16:02 ETHYL ALCOHOL (ETHANOL) Ordered. EDMS 16:02 SALICYLATE LEVEL Ordered. EDMS 16:02 Call Respiratory complete. kpj 16:02 -Arterial Blood Gas Ordered. EDMS 16:41 CBC with Diff Reviewed. sd1 16:41 Urinalysis Reviewed. sd1 16:41 Urine Toxicology Reviewed. sd1 16:41 -Arterial Blood Gas Reviewed. sd1 17:00 CT Head Without Contrast Reviewed. sd1 17:00 CT Spine,Cervical W/o Contrast Reviewed. sd1 17:01 Ammonia ([place] Tube on Ice, Not [place]) Ordered. EDMS 17:01 Lactic Acid (Ag tube on ice) Ordered. EDMS 17:01 -Arterial Blood Gas Ordered. EDMS 17:22 -Arterial Blood Gas Ordered. EDMS 17:39 -Arterial Blood Gas Reviewed. sd1 17:39 EKG-ADULT Reviewed. sd1 17:42 -Arterial Blood Gas Reviewed. sd1 17:45 PT/INR Reviewed. sd1 17:55 PTT Reviewed. sd1 17:55 HCG,Serum Qualitative Reviewed. sd1 17:55 PT/INR Reviewed. sd1 18:01 Basic Metabolic Profile Reviewed. sd1 18:01 ACETAMINOPHEN LEVEL Reviewed. sd1 18:01 SALICYLATE LEVEL Reviewed. sd1 18:01 Cardiac Injury Profile Reviewed. sd1 18:01 HCG,Serum Qualitative Reviewed. sd1 18:01 Lipase Reviewed. sd1 18:01 Liver Profile Reviewed. sd1 18:01 Troponin Reviewed. sd1 18:01 ETHYL ALCOHOL (ETHANOL) Reviewed. sd1 18:01 Lactic Acid (Ag tube on ice) Reviewed. sd1 18:04 Ammonia ([place] Tube on Ice, Not [place]) Reviewed. sd1 18:04 Osmolality, Serum Ordered. EDMS 18:14 MAGNESIUM LEVEL Ordered. EDMS 18:17 naloxone 2 mg IVP once ordered. jo3 18:18 Etomidate 20 mg IVP once ordered. jo3 18:20 Succinylcholine 120 mg IV at bolus once ordered. jo3 18:21 Propofol (PF) 40 mg IVP once ordered. jo3 18:21 Propofol (PF) 20 mg IVP once ordered. jo3 18:21 Propofol (PF) 40 mg IVP once ordered. jo3 18:22 Propofol (PF) 10 mcg/kg/min IVPB continuous; titrate to Lilian 3-4 ordered. jo3 18:23 Midazolam 2 mg IVP once ordered. jo3 18:24 Admission / Observation Status ordered. EDMS 18:24 NPO DIET ordered. EDMS 18:25 ARTERIAL BLOOD GAS Ordered. EDMS 18:26 VENTILATOR SETTINGS ordered. EDMS 18:27 PORTABLE CHEST X-RAY Ordered. EDMS 18:27 PORTABLE CHEST X-RAY Ordered. EDMS 18:27 PORTABLE CHEST X-RAY Ordered. EDMS 18:27 PORTABLE CHEST X-RAY Ordered. EDMS 18:27 PORTABLE CHEST X-RAY Ordered. EDMS 18:27 PORTABLE CHEST X-RAY Ordered. EDMS 18:27 PORTABLE CHEST X-RAY Ordered. EDMS 18:27 PORTABLE CHEST X-RAY Ordered. EDMS 18:51 Propofol (PF) 40 mg IVP once ordered. jo3 19:07 [facility] Payment Agreement was scanned into [employer] and attached to record. b 19:07 Financial registration complete. gjb 19:32 ARTERIAL BLOOD GAS Ordered. EDMS 19:33 CBC WITH DIFFERENTIAL Ordered. EDMS 19:33 CRITICAL CARE PROFILE Ordered. EDMS 19:41 ANTIBODY IDENTIFICATION Ordered. EDMS 02/ 10:49 T-Sheet-- Draft Copy was scanned into [employer] and attached to record. gb 10:49 ECG/EKG was scanned into [employer] and attached to record. gb 10:50 Trend VS was scanned into [employer] and attached to record. gb 02 14:42 PCR was scanned into [employer] and attached to record. gb Administered Medications: 04/28 15:31 Drug: naloxone 2 mg [naloxone 1 mg/mL injection syringe (2 mL)] Route: IVP; Site: right jo3 hand; 15:38 Drug: Etomidate 20 mg [etomidate 2 mg/mL intravenous solution (10 mL)] Route: IVP; jo3 Site: right hand; 15:38 Drug: Succinylcholine 120 mg Route: IV; Rate: bolus; Site: right hand; jo3 16:22 Drug: Midazolam 2 mg [midazolam 1 mg/mL injection solution (2 mL)] Route: IVP; Site: jo3 right hand; 17:38 Drug: Propofol (PF) 40 mg [propofol (PF) 1,000 mg/100 mL (10 mg/mL) intravenous jo3 emulsion (4 mL)] Route: IVP; Site: right hand; 17:38 Drug: Propofol (PF) 725.7 mcg/min Route: IVPB; Site: right hand; jo3 17:48 Follow up: Increased to 15mcg/kg/min jo3 17:54 Follow up: Increased to 20mcg/kg/min jo3 18:53 Follow up: Increased to 25mcg/kg/min jo3 19:10 Follow up: Rate change 30 mcg/kg/min af2 19:17 Follow up: Rate change 40 mcg/kg/min af2 19:36 Follow up: Rate change 50 mcg/kg/min af2 19:41 Follow up: Rate change 60 mcg/kg/min af2 19:46 Follow up: Rate change 70 mcg/kg/min af2 19:50 Follow up: Rate change 80 mcg/kg/min af2 19:58 Follow up: Rate change 90 mcg/kg/min af2 20:04 Follow up: Rate change 100 mcg/kg/min af2 20:14 Follow up: Rate change 110 mcg/kg/min af2 17:48 Drug: Propofol (PF) 40 mg [propofol (PF) 1,000 mg/100 mL (10 mg/mL) intravenous jo3 emulsion (4 mL)] Route: IVP; Site: right hand; 17:54 Drug: Propofol (PF) 20 mg [propofol (PF) 1,000 mg/100 mL (10 mg/mL) intravenous jo3 emulsion (2 mL)] Route: IVP; Site: right hand; 18:48 Drug: Propofol (PF) 40 mg [propofol (PF) 1,000 mg/100 mL (10 mg/mL) intravenous jo3 emulsion (4 mL)] Route: IVP; Site: right hand; Signatures: Dispatcher [employer] Yvonne Whitehead MD MD sdMikayla Sandoval RN RN Hannah Bautista Reg Reg gb Lopresti, Mary-Elizabeth, Pipe Or Steam Fitter Furnace Installer Unit ml3 Gayle Adams RN RN jo3 Rachana Palencia RN RN af2 Beck, Gabriela gjb The chart was reviewed and I authenticate all verbal orders and agree with the evaluation and treatment provided.Corrections: (The following items were deleted from the chart) 15:53 15:53 MRI Screening Tool - Place on chart, inform RN ordered. kpj kpj 16:02 15:58 ETHYL ALCOHOL (ETHANOL)+LAB ordered. EDMS EDMS 16:02 15:58 ACETAMINOPHEN LEVEL+LAB ordered. EDMS EDMS 16:02 15:58 SALICYLATE LEVEL+LAB ordered. EDMS EDMS 18:14 18:04 MAGNESIUM LEVEL+LAB ordered. EDMS EDMS 18:44 18:25 MAGNESIUM LEVEL ordered. EDMS EDMS 18:44 18:25 PHOSPHOROUS LEVEL ordered. EDMS EDMS Attachments: 19:07 [facility] Payment Agreement gjb 04/29 10:49 T-Sheet-- Draft Copy gb 10:49 ECG/EKG gb Chart Complete MTDD
--- NOTE | 2016-04-30 22:02 | EDDOCDS ---
Nurse's Notes [facility] Name: Javier Caldwell Age: 35 yrs Sex: Female : 1980 Arrival Date: 04/28/2016 Time: 15:29 Bed 3 Private MD: Diagnosis: Altered mental status, unspecified Presentation: 04/28 15:26 Presenting complaint: EMS states: Pt found approximately [address] off [address] upside down jo3 in vehicle. Unresponsive at scene. Reactive pupils RR10-12. Opens eyes to painful stimuli. OPA inserted by EMS. Pt resisting bag and tube. FSBS 223. IO in left LE. Adult Sepsis Screening: Patient has new or worsening altered mentation (1 point). Patient's respiratory rate is less than 22. Systolic blood pressure is greater than 100. Patient has a qSOFA score of 1- Negative Sepsis Screen. Suicide/Homicide risk assessment-. Suicide/Homicide risk assessment- Unable to assess. 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 Transition of care: patient was not received from another setting of care. 15:26 Acuity: LUIS Level 1 jo3 15:26 Method Of Arrival: Ambulance jo3 Triage Assessment: 15:26 General: Appears in no apparent distress. HIV screening NA for this visit unresponsive. jo3 Neurological: Level of Consciousness is unresponsive. EENT: No deficits noted. Cardiovascular: Capillary refill is brisk Edema is absent. Rhythm is sinus rhythm No ectopy. Respiratory: Airway via oral airway. GI: Abdomen is non- distended. Derm: Skin is pink, warm & dry. 20:45 Pain: Unable to use pain scale. Patient is unresponsive. af2 REPORT DEVELOPER: 15:26 unk jo3 Historical: - Allergies: Unable to obtain; - Home Meds: 1. Adderall oral oral - PMHx: Unable to obtain; - PSHx: Unable to obtain; - Social history: Smoking status: unknown if patient ever smoked tobacco. unresponsive. - Family history: Not pertinent. - : Unable to assess if pt is on anticoagulants. Unable to Verify Home Med List with the patient / caregiver. - Exposure Risk Screening:: Unable to Assess. Screenin:50 Fall risk: Unable to Assess. Assistance ADL's: unable to assess. Abuse/DV Screen: jo3 Unable to Assess. Nutritional screening: Unable to Assess. Advance Directives: Unable to assess Advance Directive status due to pt condition. 20:42 Screening information is obtained from unknown. Abuse/DV Screen: The patient / af2 caregiver reports he/she is: pt cannot be assessed for living situation at this time. home support is adequate. Assessment: 15:27 General: Pt transferred from stretcher to bed. remains unresponsive. No withdrawal from jo3 painful stimuli. . Cardiovascular: Rhythm is sinus rhythm No ectopy. Respiratory:. Respiratory: RR 12 with OPA. Derm: Skin is pink, warm & dry. 15:49 Reassessment: Pt rolled and removed from back board. C-spine precautions maintained. No jo3 further changes noted. Multiple linear scars to darryl posterior ankles some scaring to hands and DARRYL ACs. CXR done at this time . 16:30 General: Appears in no apparent distress, Behavior is. General: Triple lumen femoral jo3 line placed by dr gray. Additional blood samples sent to lab. Awaiting results. . Neurological: Level of Consciousness is unresponsive. Cardiovascular: Heart tones S1 S2 present Edema is absent. Rhythm is sinus rhythm No ectopy. : Castaneda in place to gravity drainage Urine is clear. Derm: Skin is pink, warm & dry. 17:26 General: Appears in no apparent distress, Pt's eyes open and pt responding to yes/no jo3 questions. Obeys command to squeeze fingers. Asked for pen to write. Asked for boyfriend Lazaro Ivey in [place] at [facility]. This publicity writer called and located Lazaro Ivey and informed him of pt's wish to contact him. Lazaro unable to supply this publicity writer with a telephone number for family and stated that pt has a history of diabetes and seizures for which she is non compliant with medications. Pt informed of telephone call and asked if she wished to have other family notified and she declined by shaking her head "no". . 18:00 General: Appears in no apparent distress, comfortable, to be sleeping. General: jo3 Assisted ventilations. ET tube remains 21 at lip. OG tube 65 at lip. yellow drainage in OG tubes. Pt suctioned for clear oral secretions. No changes in vent settings. See VS. . Neurological: Level of Consciousness is. Cardiovascular: Rhythm is sinus rhythm No ectopy. Respiratory:. 18:48 Reassessment: Pt intermittently awake. Propofol boluses as per Dr order administered jo3 with Arreguin pump. Increases in infusion with each bolus. Pt remains cooperative when awake. Vent settings remain unchanged. Tolerating treatment well. Awaiting admission to ICU. 19:06 General: Appears in no apparent distress, comfortable, Behavior is quiet, Assumed care af2 of pt at this time. Pt eyes opened at this time, Propofol rate increased to 30 mcg/kg/min.. Neurological: Level of Consciousness is unresponsive. Cardiovascular: Rhythm is sinus rhythm No ectopy. Respiratory: Airway via oral intubation. Derm: Skin is pink, warm & dry. 19:45 General: Pt eyes open at this time, pt moves hand in writing motion. Provided pt with af2 paper and pen on clip board. Pt writes, "can we take out tube?" This publicity writer confirmed with pt that she is requesting ET Tube removal, pt nods head yes. [employer] notified at this time, states pt is not stable enough for extubation. This publicity writer explained to pt. Sedation increased.. 20:29 General: Appears in no apparent distress, Behavior is quiet, pt boyfriend called at af2 this time name- Lazaro Angel [phone]. this is only match up person we have for pt.. 20:38 General: Appears in no apparent distress, Behavior is quiet. Cardiovascular: Rhythm is af2 sinus rhythm No ectopy. Respiratory: Airway via oral intubation Breath sounds are clear bilaterally. GI: Oral gastric tube to suction. Derm: Skin is pink, warm & dry. Vital Signs: 15:29 BP 155 / 112; Pulse 95; Resp 12; Pulse Ox 100% ; jo3 15:30 BP 141 / 103 (auto/); jo3 15:34 BP 155 / 112 (auto/); jo3 15:34 Pulse 98 MON; Pulse Ox 88% ; jo3 15:42 BP 243 / 146 (auto/); jo3 15:45 BP 202 / 122 (auto/); jo3 15:50 BP 173 / 112 (auto/); jo3 16:05 BP 156 / 102 (auto/); jo3 16:10 BP 172 / 106 (auto/); Pulse 82; Resp 14; Temp 96.9(R); jo3 16:15 BP 169 / 102 (auto/); jo3 16:17 BP 157 / 106 (auto/); jo3 16:17 Pulse 79 MON; Pulse Ox 100% ; jo3 16:22 BP 152 / 105 (auto/); jo3 16:22 Pulse 82 MON; Pulse Ox 100% ; jo3 16:23 BP 151 / 103 (auto/); jo3 16:23 Pulse 82 MON; Pulse Ox 100% ; jo3 16:24 BP 138 / 80 RA (man/); jo3 16:25 BP 150 / 108 (auto/); jo3 16:25 Pulse 87 MON; Pulse Ox 100% ; jo3 16:28 BP 153 / 100 (auto/); jo3 16:28 Pulse 88 MON; Pulse Ox 100% ; jo3 16:30 BP 145 / 103 (auto/); jo3 16:30 Pulse 94 MON; Pulse Ox 100% ; jo3 16:33 BP 142 / 101 (auto/); jo3 16:33 Pulse 90 MON; Pulse Ox 100% ; jo3 16:35 BP 142 / 104 (auto/); jo3 16:35 Pulse 87 MON; Pulse Ox 100% ; jo3 16:38 BP 147 / 109 (auto/); jo3 16:38 Pulse 84 MON; Pulse Ox 100% ; jo3 16:40 BP 147 / 101 (auto/); jo3 16:40 Pulse 84 MON; Pulse Ox 100% ; jo3 16:43 BP 144 / 105 (auto/); jo3 16:43 Pulse 82 MON; Pulse Ox 100% ; jo3 16:45 BP 149 / 109 (auto/); jo3 16:45 Pulse 81 MON; Pulse Ox 100% ; jo3 16:48 BP 151 / 112 (auto/); jo3 16:48 Pulse 78 MON; Pulse Ox 100% ; jo3 16:50 BP 146 / 106 (auto/); jo3 16:50 Pulse 79 MON; Pulse Ox 100% ; jo3 16:53 BP 155 / 110 (auto/); jo3 16:53 Pulse 81 MON; Pulse Ox 100% ; jo3 16:55 BP 161 / 113 (auto/); jo3 16:55 Pulse 80 MON; Pulse Ox 100% ; jo3 16:58 BP 156 / 113 (auto/); jo3 16:58 Pulse 80 MON; Pulse Ox 100% ; jo3 17:00 BP 143 / 102 (auto/); jo3 17:00 Pulse 81 MON; Pulse Ox 100% ; jo3 17:03 BP 145 / 106 (auto/); jo3 17:03 Pulse 80 MON; Pulse Ox 100% ; jo3 17:05 BP 148 / 100 (auto/); jo3 17:05 Pulse 81 MON; Pulse Ox 100% ; jo3 17:08 BP 153 / 108 (auto/); jo3 17:09 Pulse 78 MON; Pulse Ox 100% ; jo3 17:10 BP 158 / 108 (auto/); jo3 17:10 Pulse 80 MON; Pulse Ox 100% ; jo3 17:13 BP 156 / 104 (auto/); jo3 17:13 Pulse 85 MON; Pulse Ox 100% ; jo3 17:15 BP 144 / 103 (auto/); jo3 17:15 Pulse 85 MON; Pulse Ox 100% ; jo3 17:18 BP 144 / 103 (auto/); jo3 17:18 Pulse 82 MON; Pulse Ox 100% ; jo3 17:20 BP 148 / 108 (auto/); jo3 17:20 Pulse 81 MON; Pulse Ox 100% ; jo3 17:23 BP 145 / 104 (auto/); jo3 17:23 Pulse 81 MON; Pulse Ox 100% ; jo3 17:25 BP 144 / 104 (auto/); jo3 17:25 Pulse 81 MON; Pulse Ox 100% ; jo3 17:28 Weight 72.57 kg (M); ar3 17:28 BP 149 / 100 (auto/); jo3 17:28 Pulse 82 MON; Pulse Ox 100% ; jo3 17:30 BP 154 / 103 (auto/); jo3 17:30 Pulse 83 MON; Pulse Ox 100% ; jo3 17:33 BP 142 / 111 (auto/); jo3 17:33 Pulse 82 MON; Pulse Ox 100% ; jo3 17:35 BP 148 / 98 (auto/); jo3 17:35 Pulse 84 MON; jo3 17:38 BP 119 / 87 (auto/); jo3 17:38 Pulse 83 MON; Pulse Ox 100% ; jo3 17:40 BP 148 / 105 (auto/); jo3 17:40 Pulse 95 MON; Pulse Ox 100% ; jo3 17:43 BP 146 / 108 (auto/); jo3 17:43 Pulse 100 MON; Pulse Ox 100% ; jo3 17:45 Pulse 99 MON; Pulse Ox 100% ; jo3 17:45 BP 146 / 110 (auto/); jo3 17:48 BP 139 / 104 (auto/); jo3 17:48 Pulse 93 MON; Pulse Ox 100% ; jo3 17:50 BP 146 / 106 (auto/); jo3 17:50 Pulse 96 MON; Pulse Ox 100% ; jo3 17:53 BP 140 / 104 (auto/); jo3 17:53 Pulse 95 MON; Pulse Ox 100% ; jo3 17:55 BP 147 / 110 (auto/); jo3 17:55 Pulse 93 MON; Pulse Ox 100% ; jo3 17:58 BP 138 / 108 (auto/); jo3 17:58 Pulse 91 MON; Pulse Ox 100% ; jo3 18:00 BP 148 / 112 (auto/); jo3 18:00 Pulse 89 MON; Pulse Ox 100% ; jo3 18:03 BP 151 / 114 (auto/); jo3 18:03 Pulse 88 MON; Pulse Ox 100% ; jo3 18:05 BP 157 / 114 (auto/); jo3 18:05 Pulse 88 MON; Pulse Ox 100% ; jo3 18:08 BP 158 / 113 (auto/); jo3 18:08 Pulse 89 MON; Pulse Ox 100% ; jo3 19:03 BP 144 / 106 (auto/); af2 19:03 Pulse 93 MON; Resp 16 A; Pulse Ox 100% on 30% FiO2 ETT vent; af2 19:05 BP 151 / 107 (auto/); af2 19:05 Pulse 92 MON; Resp 16 A; Pulse Ox 100% on 30% FiO2 ETT vent; af2 19:08 BP 165 / 109 (auto/); af2 19:08 Pulse 93 MON; Resp 16 A; Pulse Ox 100% on 30% FiO2 ETT vent; af2 19:10 BP 153 / 109 (auto/); af2 19:10 Pulse 94 MON; Resp 16 A; Pulse Ox 100% on 30% FiO2 ETT vent; af2 19:13 BP 149 / 102 (auto/); af2 19:13 Pulse 95 MON; Resp 16 A; Pulse Ox 100% on 30% FiO2 ETT vent; af2 19:15 BP 154 / 101 (auto/); af2 19:15 Pulse 95 MON; Resp 16 A; Pulse Ox 100% on 30% FiO2 ETT vent; af2 19:18 BP 146 / 104 (auto/); af2 19:18 Pulse 94 MON; Resp 16 A; Pulse Ox 100% on 30% FiO2 ETT vent; af2 19:20 BP 151 / 107 (auto/); af2 19:20 Pulse 96 MON; Resp 16 A; Pulse Ox 100% on 30% FiO2 ETT vent; af2 19:23 BP 156 / 99 (auto/); af2 19:23 Pulse 96 MON; Resp 16 S; Pulse Ox 100% on 30% FiO2 ETT vent; af2 19:25 BP 148 / 103 (auto/); af2 19:25 Pulse 97 MON; Pulse Ox 100% ; af2 19:28 BP 141 / 102 (auto/); af2 19:28 Pulse 98 MON; Resp 16 S; Pulse Ox 100% on 30% FiO2 ETT vent; af2 19:30 BP 148 / 106 (auto/); af2 19:30 Pulse 97 MON; Pulse Ox 100% ; af2 19:33 BP 148 / 102 (auto/); af2 19:33 Pulse 98 MON; Resp 16 S; Pulse Ox 100% on 30% FiO2 ETT vent; af2 19:35 BP 148 / 101 (auto/); af2 19:35 Pulse 97 MON; Pulse Ox 100% ; af2 19:40 BP 180 / 114 (auto/); af2 19:40 Pulse 97 MON; Resp 16 A; Pulse Ox 100% on 30% FiO2 ETT vent; af2 19:43 BP 177 / 121 (auto/); af2 19:43 Pulse 98 MON; Pulse Ox 100% ; af2 19:45 BP 171 / 116 (auto/); af2 19:45 Pulse 97 MON; Resp 16 A; Pulse Ox 100% on 30% FiO2 ETT vent; af2 19:48 BP 176 / 119 (auto/); af2 19:48 Pulse 101 MON; Pulse Ox 100% ; af2 19:50 BP 176 / 114 (auto/); af2 19:50 Pulse 102 MON; Resp 16 A; Pulse Ox 100% on 30% FiO2 ETT vent; af2 19:53 BP 145 / 103 (auto/); af2 19:53 Pulse 103 MON; Pulse Ox 100% ; af2 19:55 BP 163 / 114 (auto/); af2 19:55 Pulse 105 MON; Resp 16 A; Pulse Ox 100% on 30% FiO2 ETT vent; af2 19:58 BP 163 / 112 (auto/); af2 19:58 Pulse 103 MON; Resp 16 A; Pulse Ox 100% on 30% FiO2 ETT vent; af2 20:00 BP 159 / 112 (auto/); af2 20:00 Pulse 103 MON; Pulse Ox 100% ; af2 20:03 BP 154 / 106 (auto/); af2 20:03 Pulse 103 MON; Pulse Ox 100% ; af2 20:05 BP 149 / 103 (auto/); af2 20:05 Pulse 103 MON; Resp 16 A; Pulse Ox 100% on 30% FiO2 ETT vent; af2 20:08 BP 150 / 104 (auto/); af2 20:08 Pulse 103 MON; Pulse Ox 99% ; af2 20:10 BP 146 / 100 (auto/); af2 20:10 Pulse 102 MON; Pulse Ox 99% ; af2 20:13 BP 136 / 97 (auto/); af2 20:13 Pulse 103 MON; Pulse Ox 99% ; af2 20:15 BP 137 / 101 (auto/); af2 20:15 Pulse 102 MON; Resp 16 A; Temp 96.9(TE); Pulse Ox 99% on 30% FiO2 ETT vent; af2 20:17 Pulse 102 MON; Pulse Ox 99% ; af2 20:18 BP 138 / 104 (auto/); af2 20:20 BP 141 / 104 (auto/); af2 20:20 Pulse 101 MON; Pulse Ox 99% ; af2 20:23 BP 146 / 96 (auto/); af2 20:23 Pulse 100 MON; Pulse Ox 99% ; af2 20:25 BP 137 / 98 (auto/); af2 20:25 Pulse 100 MON; Pulse Ox 99% ; af2 20:28 Pulse 100 MON; Pulse Ox 99% ; af2 20:28 BP 137 / 96 (auto/); af2 20:30 BP 135 / 90 (auto/); af2 20:30 Pulse 100 MON; Resp 16 A; Pulse Ox 99% on 30% FiO2 ETT vent; af2 20:33 BP 142 / 102 (auto/); af2 20:33 Pulse 100 MON; Resp 16 A; Pulse Ox 99% on 30% FiO2 ETT vent; af2 20:35 BP 142 / 94 (auto/); af2 20:35 Pulse 99 MON; Resp 16 A; Pulse Ox 100% on 30% FiO2 ETT vent; af2 Vitals: 15:26 Log In Time N/A - ambulance arrival. jo3 ED Course: 15:30 Patient visited by Shama Rios PCA. ar3 15:30 Patient moved to Waiting ar3 15:30 Patient moved to 3 ar3 15:31 Inserted saline lock: 20 gauge in right hand. jo3 15:39 Assist provider with intubation with 7.5 Fr. ETT. via oral route. Set up intubation jo3 tray. Intubated by Yvnone Head MD Placement verified by CXR, CO2 detector w/ + color change, auscultating bilateral breath sounds, Patient tolerated well. 15:45 Castaneda cath inserted 18 Fr. Balloon inflated. To gravity drainage. Urine specimen jo3 collected. returned clear yellow urine. 15:45 NGT inserted 18 Fr. Via orogastric route to intermittent suction. Patient tolerated jo3 well. 15:50 Yvonne Head MD is Attending Physician. sd1 15:50 Patient visited by Yvonne Head MD. sd1 15:57 Basic Metabolic Profile Sent. sew 15:57 CBC with Diff Sent. sew 15:57 Cardiac Injury Profile Sent. sew 15:57 HCG,Serum Qualitative Sent. sew 15:57 Liver Profile Sent. sew 15:58 Lipase Sent. sew 15:58 PT/INR Sent. sew 15:58 Troponin Sent. sew 15:58 PTT Sent. sew 15:58 Type & Screen Sent. sew 15:58 Urinalysis Sent. sew 15:58 Type and Cross, Packed Cells Sent. sew 15:58 Urine Toxicology Sent. sew 16:08 -Arterial Blood Gas Sent. kt1 16:21 SALICYLATE LEVEL Sent. ar3 16:21 ETHYL ALCOHOL (ETHANOL) Sent. ar3 16:21 ACETAMINOPHEN LEVEL Sent. ar3 16:30 Assist provider with central line placement of triple lumen in right femoral. Set up jo3 central line tray. Line placed by Yvonne Head MD Placement verified by blood return. 16:33 Triage Initiated jo3 16:36 Patient visited by Ro Polanco PCA. rs6 16:41 CT Head Without Contrast Returned. EDMS 16:41 CT Spine,Cervical W/o Contrast Returned. EDMS 16:45 EKG done. (by ED staff). Reviewed by Yvonne Head MD. ct3 16:46 Patient visited by Caitlin Laboy PCA. ct3 16:50 Unable to instruct regarding the plan of care due to patient condition. jo3 17:15 -Arterial Blood Gas Sent. ar3 17:15 Lactic Acid (Ag tube on ice) Sent. ar3 17:15 Ammonia ([place] Tube on Ice, Not [place]) Sent. ar3 17:19 EKG-ADULT Returned. EDMS 17:28 Patient visited by Shama Rios PCA. ar3 18:29 Patient visited by Gayle Adams,AGNES. jo3 18:30 Jacobo Kramer is Hospitalizing Provider. sd1 18:42 Patient visited by Gayle Adams,AGNES. jo3 19:05 Rachana Palencia RN is Primary Nurse. af2 19:07 [facility] Payment Agreement was scanned into [employer] and attached to record. gjb 19:10 Patient visited by Rachana Palencia RN. af2 19:13 Patient has correct armband on for positive identification. Placed in gown. Side rails af2 up X2. 19:20 Patient visited by Rachana Palencia RN. af2 19:32 Patient name changed from Javier\\S\\\\S\\Fink\\S\\ to Javier\\S\\Victoria\\S\\Fink. EDMS 20:38 Discontinued IO discontinued. Not viable. jo3 04/29 10:49 T-Sheet-- Draft Copy was scanned into [employer] and attached to record. gb 10:49 ECG/EKG was scanned into [employer] and attached to record. gb 10:50 Trend VS was scanned into [employer] and attached to record. gb 04/30 14:42 PCR was scanned into [employer] and attached to record. gb Administered Medications: 04/28 15:31 Drug: naloxone 2 mg [naloxone 1 mg/mL injection syringe (2 mL)] Route: IVP; Site: right jo3 hand; 15:38 Drug: Etomidate 20 mg [etomidate 2 mg/mL intravenous solution (10 mL)] Route: IVP; jo3 Site: right hand; 15:38 Drug: Succinylcholine 120 mg Route: IV; Rate: bolus; Site: right hand; jo3 16:22 Drug: Midazolam 2 mg [midazolam 1 mg/mL injection solution (2 mL)] Route: IVP; Site: jo3 right hand; 17:38 Drug: Propofol (PF) 40 mg [propofol (PF) 1,000 mg/100 mL (10 mg/mL) intravenous jo3 emulsion (4 mL)] Route: IVP; Site: right hand; 17:38 Drug: Propofol (PF) 725.7 mcg/min Route: IVPB; Site: right hand; jo3 17:48 Follow up: Increased to 15mcg/kg/min jo3 17:54 Follow up: Increased to 20mcg/kg/min jo3 18:53 Follow up: Increased to 25mcg/kg/min jo3 19:10 Follow up: Rate change 30 mcg/kg/min af2 19:17 Follow up: Rate change 40 mcg/kg/min af2 19:36 Follow up: Rate change 50 mcg/kg/min af2 19:41 Follow up: Rate change 60 mcg/kg/min af2 19:46 Follow up: Rate change 70 mcg/kg/min af2 19:50 Follow up: Rate change 80 mcg/kg/min af2 19:58 Follow up: Rate change 90 mcg/kg/min af2 20:04 Follow up: Rate change 100 mcg/kg/min af2 20:14 Follow up: Rate change 110 mcg/kg/min af2 17:48 Drug: Propofol (PF) 40 mg [propofol (PF) 1,000 mg/100 mL (10 mg/mL) intravenous jo3 emulsion (4 mL)] Route: IVP; Site: right hand; 17:54 Drug: Propofol (PF) 20 mg [propofol (PF) 1,000 mg/100 mL (10 mg/mL) intravenous jo3 emulsion (2 mL)] Route: IVP; Site: right hand; 18:48 Drug: Propofol (PF) 40 mg [propofol (PF) 1,000 mg/100 mL (10 mg/mL) intravenous jo3 emulsion (4 mL)] Route: IVP; Site: right hand; Attachments: 10:50 Trend VS gb Intake: RT: 04/28 16:04 Ventilation: Ventilator Settings Assist Control, FiO2 40% Resp Rate: 14, Tidal Volume kt1 420ml PEEP: 5. 19:33 Ventilation: Ventilator Settings FiO2 30% Resp Rate: 16, Tidal Volume 350ml PEEP: 5. rs5 19:46 ABG's drawn from right radial artery pressure held for 5 minutes no bleeding noted rs5 pressure bandage applied specimen sent pt. tolerated well. Ventilator: 15:45 Fi02: 40%; Rate: 14min; T.V.: 420ml; Peep: 5cm; ET tube: 7.5 mm (Oral); jo3 15:45 Fi02: 40%; Rate: 14min; T.V.: 420ml; Peep: 5cm; ET tube: 7.5 mm (Oral); jo3 Order Results: Lab Order: Basic Metabolic Profile; SPEC'M 04/28/16 17:00 Test: GLUCOSE, FASTING; Value: 255; Range: 70-105; Abnormal: Above high normal; Units: MG/DL; Status: F Test: BLOOD UREA NITROGEN; Value: 21; Range: 7-18; Abnormal: Above high normal; Units: MG/DL; Status: F Test: CREATININE FOR GFR; Value: 0.79; Range: 0.55-1.02; Units: MG/DL; Status: F Test: SODIUM LEVEL; Range: 136-145; Units: MEQ/L; Status: I Test: POTASSIUM SERUM; Range: 3.5-5.1; Units: MEQ/L; Status: I Test: CHLORIDE LEVEL; Range: 98-107; Units: MEQ/L; Status: I Test: CARBON DIOXIDE LEVEL; Range: 21-32; Units: MEQ/L; Status: I Test: ANION GAP; Range: 8-16; Units: MEQ/L; Status: I Test: CALCIUM LEVEL; Range: 8.5-10.1; Units: MG/DL; Status: I Test: GLOMERULAR FILTRATION RATE; Value: > 60.0; Range: >60; Status: F Test: SODIUM LEVEL; Value: 135; Range: 136-145; Abnormal: Below low normal; Units: MEQ/L; Status: F Test: POTASSIUM SERUM; Value: 4.0; Range: 3.5-5.1; Units: MEQ/L; Status: F Test: CHLORIDE LEVEL; Value: 100; Range: 98-107; Units: MEQ/L; Status: F Test: CARBON DIOXIDE LEVEL; Value: 26; Range: 21-32; Units: MEQ/L; Status: F Test: ANION GAP; Value: 9; Range: 8-16; Units: MEQ/L; Status: F Test: CALCIUM LEVEL; Value: 9.0; Range: 8.5-10.1; Units: MG/DL; Status: F Test Note: ; Units are mL/min/1.73 m2 Chronic Kidney Disease Staging per NKF: Stage I & II GFR >=60 Normal to Mildly Decreased Stage III GFR 30-59 Moderately Decreased Stage IV GFR 15-29 Severely Decreased Stage V GFR <15 Very Little GFR Left ESRD GFR <15 on EMBEDDED SOFTWARE TEST ENGINEER Lab Order: CBC with Diff; SPEC'M 04/28/16 15:47 Test: WHITE BLOOD COUNT; Value: 9.2; Range: 4.0-10.0; Units: K/mm3; Status: F Test: RED BLOOD COUNT; Value: 5.21; Range: 4.00-5.40; Units: M/mm3; Status: F Test: HEMOGLOBIN; Value: 15.5; Range: 12.0-16.0; Units: g/dl; Status: F Test: HEMATOCRIT; Value: 44.1; Range: 36.0-47.0; Units: %; Status: F Test: MEAN CORPUSCULAR VOLUME; Value: 84.6; Range: 80.0-96.0; Units: fl; Status: F Test: MEAN CORPUSCULAR HEMOGLOBIN; Value: 29.7; Range: 27.0-33.0; Units: pg; Status: F Test: MEAN CORPUSCULAR HGB CONC; Value: 35.1; Range: 32.0-36.5; Units: g/dl; Status: F Test: RED CELL DISTRIBUTION WIDTH; Value: 13.0; Range: 11.5-14.5; Units: %; Status: F Test: PLATELET COUNT, AUTOMATED; Value: 241; Range: 150-450; Units: k/mm3; Status: F Test: NEUTROPHILS %; Value: 65.1; Range: 36.0-66.0; Units: %; Status: F Test: LYMPH %; Value: 25.1; Range: 24.0-44.0; Units: %; Status: F Test: MONO %; Value: 6.5; Range: 0.0-5.0; Abnormal: Above high normal; Units: %; Status: F Test: EOS %; Value: 1.0; Range: 0.0-3.0; Units: %; Status: F Test: BASO %; Value: 0.3; Range: 0.0-1.0; Units: %; Status: F Test: LARGE UNSTAINED CELL %; Value: 2.0; Range: 0.0-4.0; Units: %; Status: F Test: NEUTROPHILS #; Value: 6.0; Range: 1.8-7.7; Units: K/mm3; Status: F Test: LYMPH #; Value: 2.5; Range: 1.5-4.5; Units: K/mm3; Status: F Test: MONO #; Value: 0.6; Range: 0.0-0.8; Units: K/mm3; Status: F Test: EOS #; Value: 0.1; Range: 0.0-0.50; Units: K/mm3; Status: F Test: BASO #; Value: 0.0; Range: 0.0-0.2; Units: K/mm3; Status: F Test: LARGE UNSTAINED CELL #; Value: 0.2; Range: 0.0-0.4; Units: K/mm3; Status: F Lab Order: Cardiac Injury Profile; [facility]' 04/28/16 17:00 Test: CPK CREATINE PHOSPHOKINASE; Value: 129; Range: 26-192; Units: U/L; Status: F Test: CK-MB VALUE MASS; Value: 1.2; Range: 0.0-3.6; Units: NG/ML; Status: F Test: MB/CK RELATIVE INDEX; Value: 0.93; Range: < OR =4; Status: F Test Note: ; DIAGNOSIS CRITERIA MMB ng/ml Relative Index (RI) NON-AMI < or = 5 N/A AG ZONE > 5 < or = 4 AMI > 5 > 4 Lab Order: HCG,Serum Qualitative; SPEC' 04/28/16 17:00 Test: HCG, SERUM QUALITATIVE; Value: NEGATIVE; Range: NEGATIVE; Status: F Lab Order: Lipase; [facility]04/28/16 17:00 Test: LIPASE; Value: 132; Range: 73-393; Units: U/L; Status: F Lab Order: Liver Profile; 04/28/16 17:00 Test: AST/SGOT; Value: 28; Range: 15-37; Units: U/L; Status: F Test: ALT/SGPT; Value: 44; Range: 12-78; Units: U/L; Status: F Test: ALKALINE PHOSPHATASE; Value: 99; Range: 45-117; Units: U/L; Status: F Test: BILIRUBIN,TOTAL; Value: 0.6; Range: 0.2-1.0; Units: MG/DL; Status: F Test: BILIRUBIN,DIRECT; Value: 0.2; Range: 0.0-0.2; Units: MG/DL; Status: F Test: TOTAL PROTEIN; Value: 7.2; Range: 6.4-8.2; Units: GM/DL; Status: F Test: ALBUMIN; Value: 3.6; Range: 3.2-5.2; Units: GM/DL; Status: F Test: ALBUMIN/GLOBULIN RATIO; Value: 1.00; Range: 1.00-1.93; Status: F Lab Order: PT/INR; 04/28/16 17:00 Test: PROTHROMBIN TIME; Value: 12.6; Range: 12.3-14.5; Units: SECONDS; Status: F Test: INR; Value: 0.93; Status: F Test Note: ; THERAPUTIC HUMAN INR VALUES INDICATIONS NORMAL RANGES PROPHYLAXIS/TREATMENT OF: VENOUS THROMBOSIS 2.0-3.0 PULMONARY EMBOLISM 2.0-3.0 PREVENTION OF SYSTEMIC EMBOLISM FROM: TISSUE HEART VALVES 2.0-3.0 ACUTE MYOCARDIAL INFARCTION 2.0-3.0 VALVULAR HEART DISEASE 2.0-3.0 ATRIAL FIBRILLATION 2.0-3.0 MECHANICAL VALVES(HIGH RISK) 2.5-3.5 RECURRENT MYOCARDIAL INFARCTION 2.5-3.5 Lab Order: PTT; [facility]04/28/16 17:00 Test: PARTIAL THROMBOPLASTIN TIME; Value: 24.1; Range: 26.6-37.1; Abnormal: Below low normal; Units: SECONDS; Status: F Lab Order: Troponin; 04/28/16 17:00 Test: TROPONIN I; Value: < 0.02; Range: < 0.10; Units: NG/ML; Status: F Test Note: ; Troponin I Reference Interval for [facility] LOCI: 99th Percentile= 0.00-0.045 ng/ml Risk Stratification: <= 0.10 ng/ml Decreased Risk for Adverse Clinical Events. 0.10-1.50 ng/ml Increased Risk for Adverse Clinical Events. Evaluation of additional criterion and/or repeat testing in 2-6 hours is suggested to rule out myocardial damage. >= 1.50 ng/ml Indicative of Myocardial Injury. Lab Order: Type & Screen; [facility] 04/28/16 17:00 Test: BLOOD TYPE; Value: O NEG; Status: F Test: AB SCREEN (INDIRECT DAYAMI)GEL; Value: POSITIVE; Status: F Lab Order: Urinalysis; [facility] 04/28/16 15:47 Test: APPEARANCE, URINE; Value: CLEAR; Range: CLEAR; Status: F Test: COLOR, URINE; Value: YELLOW; Range: YELLOW; Status: F Test: PH,URINE; Value: 5.0; Range: 5.0-9.0; Units: UNITS; Status: F Test: SPECIFIC GRAVITY URINE AUTO; Value: 1.037; Range: 1.002-1.035; Status: F Test: PROTEIN, URINE AUTO; Value: NEGATIVE; Range: NEGATIVE; Units: mg/dL; Status: F Test: GLUCOSE, URINE (UA) AUTO; Value: 3+; Range: NEGATIVE; Abnormal: Above high normal; Units: mg/dL; Status: F Test: KETONE, URINE AUTO; Value: 1+; Range: NEGATIVE; Abnormal: Above high normal; Units: mg/dL; Status: F Test: UROBILINOGEN, URINE AUTO; Value: 0.2; Range: 0.0-2.0; Units: mg/dL; Status: F Test: BILIRUBIN, URINE AUTO; Value: NEGATIVE; Range: NEGATIVE; Status: F Test: NITRITE, URINE AUTO; Value: NEGATIVE; Range: NEGATIVE; Status: F Test: LEUKOCYTE ESTERASE, URINE AUTO; Value: NEGATIVE; Range: NEGATIVE; Status: F Test: BLOOD, URINE BLOOD; Value: NEGATIVE; Range: NEGATIVE; Status: F Test: WBC, URINE AUTO; Value: 5; Range: 0-3; Abnormal: Above high normal; Units: /HPF; Status: F Test: RBC, URINE AUTO; Value: 0; Range: 0-3; Units: /HPF; Status: F Test: BACTERIA, URINE AUTO; Value: NEGATIVE; Range: NEGATIVE; Status: F Test: SQUAMOUS EPITHELIAL CELL UR AU; Value: 0; Range: 0-6; Units: /HPF; Status: F Test: MUCUS, URINE; Value: SMALL; Range: NEGATIVE; Status: F Test: HYALINE CAST, URINE AUTO; Value: 0; Range: 0-1; Units: /LPF; Status: F Lab Order: Urine Toxicology; SPEC'M 04/28/16 15:47 Test: AMPHETAMINES LEVEL URINE; Value: POSITIVE; Range: NEGATIVE; Abnormal: Above high normal; Status: F Test: BARBITURATES URINE; Value: NEGATIVE; Range: NEGATIVE; Status: F Test: BENZODIAZEPINES URINE; Value: NEGATIVE; Range: NEGATIVE; Status: F Test: CANNABINOIDS URINE; Value: NEGATIVE; Range: NEGATIVE; Status: F Test: COCAINE METABOLITE URINE; Value: NEGATIVE; Range: NEGATIVE; Status: F Test: METHADONE URINE; Value: NEGATIVE; Range: NEGATIVE; Status: F Test: OPIATES URINE; Value: POSITIVE; Range: NEGATIVE; Abnormal: Above high normal; Status: F Test: TRICYCLIC ANTIDEPRESS URINE; Value: NEGATIVE; Range: NEGATIVE; Status: F Test Note: ; ALL PRESUMPTIVE POSITIVE FINDINGS ARE UNCONFIRMED NORMAL VALUES THRESHOLD IN NG/ML AMPHETAMINES 1000 METHAMPHETAMINES 1000 BARBITURATES 300 BENZODIAZEPINES 300 CANNABINOIDS (THC) 50 COCAINE METABOLITE 300 METHADONE 300 OPIATES 300 PHENCYCLIDINE 25 TRICYCLIC ANTIDEPRESSANTS 1000 RESULTS ARE FOR MEDICAL PURPOSES ONLY. ALL URINE SPECIMENS WILL BE SAVED FOR 3 DAYS. IF CONFIRMATION OF A PRESUMPTIVE POSTIVE SCREEN RESULT IS DESIRED, CALL CHEMISTRY ([phone]) AND REQUEST URINE TO BE SENT TO REFERENCE LAB. FOR A LIST OF CLOSELY RELATED COMPOUNDS PLEASE CALL THE LAB. Lab Order: ACETAMINOPHEN LEVEL; SPEC'M 04/28/16 17:00 Test: ACETAMINOPHEN LEVEL; Value: < 2.0; Range: 10.0-30.0; Abnormal: Below low normal; Units: UG/ML; Status: F Lab Order: ETHYL ALCOHOL (ETHANOL); SPEC'M 04/28/16 17:00 Test: ETHYL ALCOHOL (ETHANOL); Value: < 0.003; Range: 0.000-0.010; Units: %; Status: F Lab Order: SALICYLATE LEVEL; 04/28/16 17:00 Test: SALICYLATE LEVEL; Value: < 1.7; Range: 5.0-30.0; Abnormal: Below low normal; Units: MG/DL; Status: F Lab Order: -Arterial Blood Gas; 04/28/16 15:46 Test: ABG pH (ARTERIAL); Value: 7.492; Range: 7.350-7.450; Abnormal: Above high normal; Units: UNITS; Status: F Test: ABG PARTIAL PRESSURE CO2; Value: 29.5; Range: 35.0-45.0; Abnormal: Below low normal; Units: mmHg; Status: F Test: ABG PARTIAL PRESSURE O2; Value: 166.3; Range: 75.0-100.0; Abnormal: Above high normal; Units: mmHg; Status: F Test: ABG TOTAL CO2; Value: 23.0; Range: 22.0-29.0; Units: MEQ/L; Status: F Test: ABG HCO3; Value: 22.1; Range: 22.0-26.0; Units: MEQ/L; Status: F Test: ABG BASE EXCESS; Value: -0.1; Range: -2.0-2.0; Status: F Test: ABG STANDARD HCO3; Value: 24.5; Range: 22.0-26.0; Units: MEQ/L; Status: F Test: ABG O2 SATURATION; Value: 99.3; Range: 95.0-99.0; Abnormal: Above high normal; Units: %; Status: F Test: ABG DEVICE; Value: NASAL JUNIOR; Status: F Lab Order: Ammonia ([place] Tube on Ice, Not [place]); 04/28/16 17:00 Test: AMMONIA; Value: 18; Range: <32; Units: uMOL/L; Status: F Lab Order: Lactic Acid (Ag tube on ice); 04/28/16 17:00 Test: LACTIC ACID SEPSIS PROTOCOL; Value: 1.4; Range: 0.4-2.0; Units: MMOL/L; Status: F Lab Order: -Arterial Blood Gas; SPEC' 04/28/16 16:33 Test: ABG pH (ARTERIAL); Value: 7.408; Range: 7.350-7.450; Units: UNITS; Status: F Test: ABG PARTIAL PRESSURE CO2; Value: 40.5; Range: 35.0-45.0; Units: mmHg; Status: F Test: ABG PARTIAL PRESSURE O2; Value: 41.0; Range: 75.0-100.0; Abnormal: Critical Low; Units: mmHg; Status: F Test: ABG TOTAL CO2; Value: 26.2; Range: 22.0-29.0; Units: MEQ/L; Status: F Test: ABG HCO3; Value: 25.0; Range: 22.0-26.0; Units: MEQ/L; Status: F Test: ABG BASE EXCESS; Value: 0.3; Range: -2.0-2.0; Status: F Test: ABG STANDARD HCO3; Value: 24.3; Range: 22.0-26.0; Units: MEQ/L; Status: F Test: ABG O2 SATURATION; Value: 78.1; Range: 95.0-99.0; Abnormal: Below low normal; Units: %; Status: F Test: ABG DEVICE; Value: NASAL JUNIOR; Status: F Lab Order: -Arterial Blood Gas; [facility] 04/28/16 17:34 Test: ABG pH (ARTERIAL); Value: 7.435; Range: 7.350-7.450; Units: UNITS; Status: F Test: ABG PARTIAL PRESSURE CO2; Value: 36.6; Range: 35.0-45.0; Units: mmHg; Status: F Test: ABG PARTIAL PRESSURE O2; Value: 184.6; Range: 75.0-100.0; Abnormal: Above high normal; Units: mmHg; Status: F Test: ABG TOTAL CO2; Value: 25.1; Range: 22.0-29.0; Units: MEQ/L; Status: F Test: ABG HCO3; Value: 24.0; Range: 22.0-26.0; Units: MEQ/L; Status: F Test: ABG BASE EXCESS; Value: 0.2; Range: -2.0-2.0; Status: F Test: ABG STANDARD HCO3; Value: 24.7; Range: 22.0-26.0; Units: MEQ/L; Status: F Test: ABG O2 SATURATION; Value: 99.3; Range: 95.0-99.0; Abnormal: Above high normal; Units: %; Status: F Test: ABG DEVICE; Value: NASAL JUNIOR; Status: F Lab Order: Osmolality, Serum; [facility] 04/28/16 16:33 Test: OSMOLALITY SERUM; Value: 304; Range: 275-295; Abnormal: Above high normal; Units: MOSM/KG; Status: F Lab Order: MAGNESIUM LEVEL; [facility] 04/28/16 17:00 Test: MAGNESIUM LEVEL; Value: 2.4; Range: 1.8-2.4; Units: MG/DL; Status: F Lab Order: ARTERIAL BLOOD GAS; [facility] 04/28/16 19:27 Test: ABG pH (ARTERIAL); Value: 7.384; Range: 7.350-7.450; Units: UNITS; Status: F Test: ABG PARTIAL PRESSURE CO2; Value: 36.1; Range: 35.0-45.0; Units: mmHg; Status: F Test: ABG PARTIAL PRESSURE O2; Value: 132.5; Range: 75.0-100.0; Abnormal: Above high normal; Units: mmHg; Status: F Test: ABG TOTAL CO2; Value: 22.2; Range: 22.0-29.0; Units: MEQ/L; Status: F Test: ABG HCO3; Value: 21.1; Range: 22.0-26.0; Abnormal: Below low normal; Units: MEQ/L; Status: F Test: ABG BASE EXCESS; Value: -3.3; Range: -2.0-2.0; Abnormal: Below low normal; Status: F Test: ABG STANDARD HCO3; Value: 21.8; Range: 22.0-26.0; Abnormal: Below low normal; Units: MEQ/L; Status: F Test: ABG O2 SATURATION; Value: 98.8; Range: 95.0-99.0; Units: %; Status: F Lab Order: PHOSPHOROUS LEVEL; [facility] 04/28/16 17:00 Test: PHOSPHORUS LEVEL; Value: 2.9; Range: 2.5-4.9; Units: MG/DL; Status: F Radiology Order: CT Head Without Contrast Test: CT Head Without Contrast REASON FOR EXAMINATION: Trauma; Head CT without contrast:; ; History: Trauma.; ; Comparison study: No comparison.; ; CT findings: Bone window settings demonstrate an intact bony calvarium. There; is no evidence of skull fracture or incidental bony calvarial lesion. There is a; small air-fluid level in the left maxillary sinus. The other visualized; paranasal sinuses appear clear. No intraorbital abnormality is seen. On soft; tissue window setting images; the lateral, third, and fourth ventricles are; normal in size and position. Ag-white differentiation pattern is normal above; and below the tentorium. There are is no evidence of intracranial hemorrhage.; No mass, edema, infarction, or midline shift is seen. No extra-axial fluid; collection is appreciated.; ; Impression:; ; Small air-fluid level in the left maxillary sinus, otherwise negative noncontrast; head CT.; ; ; Signed by; Calvin Beltrán MD 04/28/2016 04:18 P; Radiology Order: CT Spine,Cervical W/o Contrast Test: CT Spine,Cervical W/o Contrast REASON FOR EXAMINATION: Trauma; CT study of the cervical spine without contrast:; ; History: Trauma.; ; Technique: Helical scanning is acquired and overlapping 2 mm high resolution; axial images were generated and reviewed at bone and soft tissue window settings.; Coronal and sagittal multiplanar re-formations images are generated.; ; CT findings: There is no evidence of cervical spine element fracture. No skull; base fracture is seen. Cervical vertebral body heights are preserved. Alignment; is normal. There is discogenic spurring at C6-7 and C7-T1. Orotracheal and oral; esophageal tubes are seen. Facet joints are normally aligned bilaterally at each; cervical level on multiplanar re-formations images. There is no evidence of; intraspinal or paraspinal hematoma. No extra vertebral abnormality is seen.; ; Impression:; ; Orotracheal and oral esophageal tubes. Mild degenerative disc changes.; Otherwise negative CT study of the cervical spine without contrast. 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 sd1 20:41 Discharge Assessment: Patient awake, alert and oriented x 3. No cognitive and/or af2 functional deficits noted. Patient verbalized understanding of disposition instructions. patient administered narcotics - no. The following High Risk Discharge criteria are identified: None. Admitted to ICU accompanied by nurse, accompanied by tech, via stretcher, with oxygen, on monitor, with chart. Condition: stable. CT Study completed. Property :Personal belongings accompany Pt. 21:00 Patient left the ED. af2 Signatures: Dispatcher [employer] EDMS Yvonne Head MD MD sd1 Hannah Santana, Reg Reg Didi Gerardo kt1 Gayle Adams,RN RN jo3 Shama Rios, ROOM SERVICE ASSOCIATE ROOM SERVICE ASSOCIATE ar3 Caitlin Laboy, ROOM SERVICE ASSOCIATE ROOM SERVICE ASSOCIATE ct3 Ibrahima Melvin,RT RT rs5 Yvonne Dangelo Rebecca, ROOM SERVICE ASSOCIATE ROOM SERVICE ASSOCIATE rs6 Rachana Palencia,RN RN af2 Rose Prasad Corrections: (The following items were deleted from the chart) 16:02 15:58 SALICYLATE LEVEL+LAB sent. sew EDMS 16:02 15:58 ACETAMINOPHEN LEVEL+LAB sent. sew EDMS 16:02 15:58 ETHYL ALCOHOL (ETHANOL)+LAB sent. sew EDMS 17:12 15:29 BP 155 / 112; Pulse 95bpm; Resp 100bpm; Pulse Ox 12%; jo3 jo3 17:29 16:00 Reassessment: jo3 jo3 18:05 17:26 Reassessment: jo3 jo3 18:05 17:26 General: Appears jo3 jo3 19:50 17:26 General: Appears in no apparent distress, Pt's eyes open and pt responding to jo3 yes/no questions. Obeys command to squeeze fingers. Asked for pen to write. Asked for boyfriend Lazaro Loni in [place] at [facility]. This publicity writer called and located Lazaro Ivey and informed him of pt's wish to contact him. Lazaro unable to supply this publicity writer with a telephone number for family and stated that pt has a history of diabetes and seizures for which she is non compliant with medications. . jo3 Chart Complete MTDD
[2016-05-01] MEDS ORDERED: diphenhydrAMINE 25 MG CAP PO ONE
[2016-05-01 06:00] VITALS: BP 129/78
[2016-05-01 06:04] LABS: BASO % 0.3 % (0.0-1.0); EOS # 0.2 K/mm3 (0.0-0.50); LARGE UNSTAINED CELL # 0.2 K/mm3 (0.0-0.4); LYMPH # 3.2 K/mm3 (1.5-4.5); LYMPH % 30.7 % (24.0-44.0); MEAN CORPUSCULAR HEMOGLOBIN 28.4 pg (27.0-33.0); MEAN CORPUSCULAR HGB CONC 32.8 g/dl (32.0-36.5); MEAN CORPUSCULAR VOLUME 86.5 fl (80.0-96.0); MONO # 0.4 K/mm3 (0.0-0.8); MONO % 3.5 % (0.0-5.0); NEUTROPHILS # 6.4 K/mm3 (1.8-7.7); NEUTROPHILS % 61.6 % (36.0-66.0); PLATELET COUNT, AUTOMATED 205 k/mm3 (150-450); RED CELL DISTRIBUTION WIDTH 12.8 % (11.5-14.5); WHITE BLOOD COUNT 10.4 K/mm3 (4.0-10.0)
[2016-05-01 06:30] LABS: ALBUMIN 2.6 GM/DL (3.2-5.2); ALBUMIN/GLOBULIN RATIO 0.68 (1.00-1.93); ALKALINE PHOSPHATASE 87 U/L (45-117); ALT/SGPT 26 U/L (12-78); ANION GAP 6 MEQ/L (8-16); AST/SGOT 16 U/L (15-37); BILIRUBIN,TOTAL 0.2 MG/DL (0.2-1.0); BLOOD UREA NITROGEN 15 MG/DL (7-18); CALCIUM LEVEL 8.5 MG/DL (8.5-10.1); CARBON DIOXIDE LEVEL 27 MEQ/L (21-32); CHLORIDE LEVEL 116 MEQ/L (98-107); CHOLESTEROL LEVEL 160 MG/DL (< 200); CREATININE FOR GFR 0.57 MG/DL (0.55-1.02); GLOMERULAR FILTRATION RATE > 60.0 (>60); GLUCOSE, FASTING 185 MG/DL (70-105); PHOSPHORUS LEVEL 2.5 MG/DL (2.5-4.9); SODIUM LEVEL 149 MEQ/L (136-145); TOTAL PROTEIN 6.4 GM/DL (6.4-8.2); TRIGLYCERIDES LEVEL 147 MG/DL (<150)
[2016-05-01] MEDS: LEVOTHYROXINE 0.1 MG TAB (100 MCG) PO SCH (06:31)
[2016-05-01] MEDS: HEPARIN SOD (PORCINE) 5000 UNITS/ML VIAL SC SCH ×2 (06:31→13:11)
[2016-05-01] MEDS: IBUPROFEN 800 MG TAB PO PRN ×2 (06:34→12:38)
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
[2016-05-01] MEDS: levETIRAcetam 250MG TABLET (KEPPRA) PO SCH (08:59)
[2016-05-01] MEDS: HumaLOG INSULIN (NovoLOG) PER UNIT SC SCH ×2 (09:00→12:34)
[2016-05-01] MEDS: LEVEMIR (INSULIN DETEMIR) 1 UNITS/0.01ML SC SCH (09:00)
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
== END 2016-05-01 14:15 | disposition home or self-care (01) | DRG 57 ==
LOC: M ED 15:29 → M ED INP 18:16 → M ICU 20:54 → M MSPAV 04-30 06:18
PROVIDERS: ADMIT Internal Medicine Pulmonary Disease; ATTEND Internal Medicine Nephrology
DX: S06.0X9A Concussion with loss of consciousness of unspecified duration, initial encounter (principal); J96.00 Acute respiratory failure, unspecified whether with hypoxia or hypercapnia; R41.3 Other amnesia; S00.93XA Contusion of unspecified part of head, initial encounter; F41.9 Anxiety disorder, unspecified; E03.9 Hypothyroidism, unspecified; G40.909 Epilepsy, unspecified, not intractable, without status epilepticus; E11.9 Type 2 diabetes mellitus without complications; F90.1 Attention-deficit hyperactivity disorder, predominantly hyperactive type; Z79.899 Other long term (current) drug therapy; Z79.4 Long term (current) use of insulin; T41.295A Adverse effect of other general anesthetics, initial encounter; V48.5XXA Car driver injured in noncollision transport accident in traffic accident, initial encounter

== ENCOUNTER 2016-09-08 20:20 | Emergency (ER) | payer OTHER, SELFPAY ==
[~2016-09-08] VITALS: Ht 157.5 cm; Wt 70.8 kg
[~2016-09-08 20:20] MED LIST: ADDE20CA PO; INSUH10VL SC; INSULANT SC; KEPP500T6 PO; KLON2TAB PO; LEVO100T5 PO
[2016-09-08] MEDS ORDERED: NS 1,000 ML IV ONE (20:45)
[2016-09-08 21:54] LABS: VENOUS BASE EXCESS -0.7 (-2.0-2.0); VENOUS O2 SATURATION 85.1 % (60.0-80.0); VENOUS PARTIAL PRESSURE CO2 39.7 mmHg (38.0-50.0); VENOUS PARTIAL PRESSURE O2 50.7 mmHg (30.0-50.0); VENOUS STANDARD HCO3 23.6 MEQ/L; VENOUS TOTAL CO2 25.1 MEQ/L (24.0-28.0)
[2016-09-08 21:56] LABS: BASO % 0.5 % (0.0-1.0); EOS # 0.1 K/mm3 (0.0-0.50); EOS % 1.2 % (0.0-3.0); LARGE UNSTAINED CELL # 0.1 K/mm3 (0.0-0.4); LARGE UNSTAINED CELL % 1.7 % (0.0-4.0); LYMPH # 2.5 K/mm3 (1.5-4.5); LYMPH % 28.5 % (24.0-44.0); MEAN CORPUSCULAR HEMOGLOBIN 29.2 pg (27.0-33.0); MEAN CORPUSCULAR HGB CONC 34.5 g/dl (32.0-36.5); MEAN CORPUSCULAR VOLUME 84.8 fl (80.0-96.0); MONO # 0.4 K/mm3 (0.0-0.8); MONO % 4.6 % (0.0-5.0); NEUTROPHILS # 5.2 K/mm3 (1.8-7.7); NEUTROPHILS % 63.5 % (36.0-66.0); PLATELET COUNT, AUTOMATED 271 k/mm3 (150-450); RED CELL DISTRIBUTION WIDTH 13.3 % (11.5-14.5); WHITE BLOOD COUNT 8.2 K/mm3 (4.0-10.0)
[2016-09-08 22:08] LABS: CONTROL LINE HCG INT CTR LINE PRESENT
[2016-09-08 22:14] LABS: OSMOLALITY SERUM 300 MOSM/KG (275-295)
[2016-09-08] MEDS ORDERED: ONDANSETRON 4MG/2ML VIAL (J2405) IV ONE (22:15)
[2016-09-08 22:18] LABS: ALBUMIN/GLOBULIN RATIO 1.18 (1.00-1.93); ALT/SGPT 30 U/L (12-78); ANION GAP 8 MEQ/L (8-16); AST/SGOT 13 U/L (15-37); BILIRUBIN,DIRECT < 0.1 MG/DL (0.0-0.2); BILIRUBIN,TOTAL 0.3 MG/DL (0.2-1.0); BLOOD UREA NITROGEN 16 MG/DL (7-18); CARBON DIOXIDE LEVEL 26 MEQ/L (21-32); CHLORIDE LEVEL 100 MEQ/L (98-107); CREATININE FOR GFR 0.72 MG/DL (0.55-1.02); GLOMERULAR FILTRATION RATE > 60.0 (>60); GLUCOSE, FASTING 333 MG/DL (70-105); POTASSIUM SERUM 3.6 MEQ/L (3.5-5.1); SODIUM LEVEL 134 MEQ/L (136-145); TOTAL PROTEIN 7.4 GM/DL (6.4-8.2)
[2016-09-08 22:24] LABS: ALKALINE PHOSPHATASE 122 U/L (45-117); FREE T4 1.23 NG/DL (0.76-1.46)
--- NOTE | 2016-09-08 22:50 | REPUSA ---
CT of the head Clinical history: altered mental status. Technique: Multiple axial CT images were obtained through the head without administration of contrast . Comparison: 04/28/2016. Findings: The ventricles and sulci are symmetric bilaterally. There is no evidence of acute hemorrhag e or infarct. There is no midline shift, mass effect, or extra-axial fluid collection. The osseous st ructures are unremarkable. The visualized paranasal sinuses and mastoid air cells are clear. Impression: Negative study.
[2016-09-09] VITALS: BP 131/98
--- NOTE | 2016-09-09 00:58 | REP ---
Clinical: Altered mental status . Comparison: 04/30/2016 . Findings: The mediastinum and cardiac silhouette are stable and within normal limits for portable technique. The lung olivares are clear without acute consolidation, effusion, or pneumothorax. Skeletal structures are intact. Impression: Normal portable chest x-ray Signed by Lazaro Cervantes MD 09/09/2016 12:49 A
--- NOTE | 2016-09-10 09:08 | ECGEPIP ---
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
== END 2016-09-09 00:14 | disposition left against medical advice (07) ==
LOC: EDBD 20:20 → M ED 22:22
DX: R41.82 Altered mental status, unspecified (principal); G40.909 Epilepsy, unspecified, not intractable, without status epilepticus; E11.9 Type 2 diabetes mellitus without complications; Z79.4 Long term (current) use of insulin
CPT/HCPCS: 70450; 71010; 80048; 80076; 80180; 82140; 82550; 82553; 82803; 83605; 83930; 84439; 84443; 84703; 85025; 87040; 93005; 93041; 94760; 96374; 99285; G0480; J2405

== ENCOUNTER 2019-11-17 17:09 | Emergency (ER) | payer BC, OTHER ==
[~2019-11-17] VITALS: Ht 154.9 cm; Wt 72.3 kg
[~2019-11-17 17:09] MED LIST changes: -ADDE20CA PO; +ADDE20CA3 PO; +KEPP1TAB PO; -KEPP500T6 PO
[2019-11-17] MEDS ORDERED: PANT40TA29 (17:26)
[2019-11-17] MEDS ORDERED: VALA500T5 (17:26)
[2019-11-17] MEDS ORDERED: PROM25TA12 (17:26)
[2019-11-17] MEDS ORDERED: EUTH100T (17:26)
[2019-11-17] MEDS ORDERED: AUGM875T28 PO (17:29)
[2019-11-17] MEDS ORDERED: IBUP-1114 PO (18:04)
[2019-11-17] MEDS ORDERED: ACET-683 PO (18:04)
[2019-11-17] MEDS ORDERED: MORPHINE 2 MG/ML 1ML VIAL (J2270) IV ONE (18:30)
[2019-11-17 18:47] LABS: BASO # 0.1 10^3/uL (0.0-0.2); BASO % 0.4 % (0.0-1.0); EOS # 0.2 10^3/uL (0.0-0.5); EOS % 1.5 % (0.0-3.0); HEMATOCRIT 39.5 % (36.0-47.0); HEMOGLOBIN 13.8 g/dl (12.0-15.5); LYMPH # 4.2 10^3/uL (1.5-5.0); LYMPH % 37.4 % (24.0-44.0); MEAN CORPUSCULAR HEMOGLOBIN 29.1 pg (27.0-33.0); MEAN CORPUSCULAR HGB CONC 34.9 g/dl (32.0-36.5); MEAN CORPUSCULAR VOLUME 83.3 fl (80.0-96.0); MONO # 0.8 10^3/uL (0.0-0.8); MONO % 6.9 % (0.0-5.0); NEUTROPHILS % 53.4 % (36.0-66.0); PLATELET COUNT, AUTOMATED 293 10^3/uL (150-450); RED BLOOD COUNT 4.74 10^6/uL (4.00-5.40); WHITE BLOOD COUNT 11.3 10^3/uL (4.0-10.0)
[2019-11-17] MEDS ORDERED: METOCLOPRAMIDE INJ 10MG/2ML VIAL (J2765 PER 1) As Ordered ONE (19:12)
[2019-11-17] MEDS ORDERED: METOCLOPRAMIDE INJ 10MG/2ML VIAL (J2765 PER 1) IV ONE (19:15)
[2019-11-17 19:20] LABS: ERYTHROCYTE SEDIMENTATION RATE 22 mm/hr (0-20)
--- NOTE | 2019-11-17 19:52 | REPVR ---
PROCEDURE INFORMATION: Exam: US Duplex Right Lower Extremity Veins, Limited Exam date and time: 11/17/2019 7:42 PM Age: 39 years old Clinical indication: Pain; Leg, lower; Right; Prior surgery; Surgery date: 1-6 months; Additional info: Calf pain, recent io TECHNIQUE: Imaging protocol: Real-time Duplex ultrasound of the Right Lower Extremity with 2-D fuentes scale, color Doppler flow and spectral waveform analysis with image documentation. Limited exam was focused on the right lower extremity veins. COMPARISON: No relevant prior studies available. FINDINGS: Right deep veins: Unremarkable. The common femoral, femoral and popliteal veins are patent without thrombus. Normal Doppler waveforms. Normal compressibility and/or augmentation response. Right superficial veins: Unremarkable. Saphenofemoral junction is patent without thrombus. Soft tissues: Unremarkable. IMPRESSION: No sonographic evidence of deep vein thrombosis. Electronically signed by: Anuj Bradshaw On 11/17/2019 19:52:13 PM
[2019-11-17 21:06] VITALS: BP 148/98
--- NOTE | 2019-11-24 17:30 | REP ---
RIGHT TIB-FIB SERIES: 4-VIEWS HISTORY: Sharp pain x2 days. FINDINGS: Four views of the right tibia and fibula demonstrate plantar and Achilles calcaneal spurring. Bones, joints, and soft tissues are otherwise unremarkable. IMPRESSION: Mild heel spurring. No acute bony abnormality. MTDD
== END 2019-11-17 21:18 | disposition home or self-care (01) ==
LOC: M ED 17:09
DX: M79.661 Pain in right lower leg (principal); R20.2 Paresthesia of skin; E11.9 Type 2 diabetes mellitus without complications; K21.9 Gastro-esophageal reflux disease without esophagitis; R56.9 Unspecified convulsions; Z79.899 Other long term (current) drug therapy; Z79.4 Long term (current) use of insulin; Z88.1 Allergy status to other antibiotic agents; Z88.2 Allergy status to sulfonamides; Z88.8 Allergy status to other drugs, medicaments and biological substances
CPT/HCPCS: 73590; 80047; 84702; 85025; 85652; 86140; 93971; 96374; 96375; 99284; J2270; J2765